=== PATIENT | female | born 2000 | race Hispanic/Latino ===

== ENCOUNTER 2020-12-21 13:55 | Emergency (ER) | payer OTHER, SELFPAY ==
--- OUTSIDE RECORDS SUMMARY | 2020-12-21 13:58 | XMS REPORT | Continuity of Care Document ---
:2000 Author Organization [facility] t Address [address] Lopez [address] [place] [id number] Care Team Providers Name Role Phone Unavailable Unavailable Unavailable Problems This patient has no known problems. Allergies, Adverse Reactions, Alerts This patient has no known allergies or adverse reactions. Medications This patient has no known medications. Procedures This patient has no known procedures. Results This patient has no known results.
--- NOTE | 2020-12-21 16:56 | ER ---
Nurse's Notes [facility] Name: Roderick Motta Age: 20 yrs Sex: Female : 2000 Arrival Date: 12/21/2020 Time: 13:58 Bed Waiting Private MD: Diagnosis: Presentation: 12/21 14:46 Chief complaint: Spouse and/or significant other states: LLQ pain that began 4 days aa5 ago. Pt reports pain is sharp and reports nausea. Denies vomiting. Coronavirus screen: At this time, the client does not indicate any symptoms associated with coronavirus-19. Ebola Screen: Patient negative for fever greater than or equal to 101.5 degrees Fahrenheit, and additional compatible Ebola Virus Disease symptoms. Initial Sepsis Screen: Does the patient meet any 2 criteria? No. Patient's initial sepsis screen is negative. Does the patient have a suspected source of infection? No. Patient's initial sepsis screen is negative. Risk Assessment: Do you want to hurt yourself or someone else? Patient reports no desire to harm self or others. Onset of symptoms was December 2020. 14:46 Method Of Arrival: Ambulatory aa5 14:46 Acuity: AMADOR 3 aa5 Historical: - Allergies: 14:48 No Known Allergies; aa5 - Home Meds: 14:48 Cymbalta oral oral [Active]; Trazodone Oral [Active]; aa5 - PMHx: 14:48 None; aa5 - PSHx: 14:48 None; aa5 - Immunization history:: Flu vaccine is up to date. - Social history:: Smoking status: Patient reports the use of cigarette tobacco products, 2-3 cigarettes a day . Vital Signs: 14:46 BP 123 / 92; Pulse 87; Resp 18 S; Temp 97.5(TE); Pulse Ox 100% on R/A; Weight 81.65 kg aa5 (R); Height 5 ft. 3 in. (160.02 cm) (R); 14:46 Body Mass Index 31.89 (81.65 kg, 160.02 cm) aa5 ED Course: 13:58 Patient arrived in ED. mr 14:25 Patient's name was called from ER lobby. No response. aa5 14:46 Arm band placed on. aa5 14:47 Triage completed. aa5 16:56 Wilder Ham MD is Attending Physician. aa5 Administered Medications: No medications were administered Outcome: 16:56 Patient left the ED. aa5 Signatures: Sara Stubbs Audri RN RN aa5 Corrections: (The following items were deleted from the chart) 14:49 14:46 BP 123 / 92; Pulse 87bpm; Resp 18bpm; Spontaneous; Pulse Ox 100% RA; Temp 97.5F aa5 Temporal; aa5
[2020-12-21 17:12] VITALS: BP 123/92; TEMP 97.5; O2SAT 100
[2020-12-21 19:44] LABS: Urine Blood TRACE (NEG); Urine Glucose NEGATIVE (NEG); Urine Protein NEGATIVE (NEG); Urine pH 6.5 (5.0-7.0)
== END 2020-12-21 16:56 | disposition left against medical advice (07) ==
LOC: ER 13:55
DX: R10.32 Left lower quadrant pain (principal); Z53.21 Procedure and treatment not carried out due to patient leaving prior to being seen by health care provider; F17.210 Nicotine dependence, cigarettes, uncomplicated
CPT/HCPCS: 81003; 81025; 99281

== ENCOUNTER 2022-03-05 21:56 | Emergency (ER) | payer SELFPAY ==
--- OUTSIDE RECORDS SUMMARY | 2022-03-05 21:59 | XMS REPORT | Continuity of Care Document ---
:2000 Author Organization [facility] t Address [address] [place] [address] Dr. Lopez [address] [place] [id number] Care Team Providers Name Role Phone Unavailable Unavailable Unavailable Problems This patient has no known problems. Allergies, Adverse Reactions, Alerts This patient has no known allergies or adverse reactions. Medications This patient has no known medications. Procedures This patient has no known procedures. Results This patient has no known results.
[2022-03-05 22:26] LABS: Urine Blood Trace-intact (Negative); Urine Glucose Negative (Negative); Urine Protein Negative (Negative); Urine Specific Gravity >=1.030 (1.005-1.030)
[2022-03-05] MEDS ORDERED: ONDANSETRON 4 MG/2 ML VIAL ONE (22:33)
[2022-03-05] MEDS ORDERED: MORPHINE 4 MG/ML SYR ONE (23:08)
[2022-03-05] MEDS ORDERED: PROMETHAZINE INJ 25 MG/ML AMP ONE (23:08)
[2022-03-06 00:07] LABS: Absolute Lymphocytes (CBC) 2.5 K/uL (0.7-4.9); Hematocrit 41.6 % (36.0-45.0); Lymphocytes % 15.9 % (15.3-44.8); MPV 10.6 fL (7.6-11.3); RBC Red Blood Cell Count 4.65 M/uL (3.86-4.86)
[2022-03-06 00:18] LABS: Albumin 3.7 g/dL (3.4-5.0); Bilirubin Total 0.2 mg/dL (0.2-1.0); Potassium 3.6 mmol/L (3.5-5.1); Protein, Total 7.6 g/dL (6.4-8.2)
[2022-03-06] MEDS ORDERED: NA CHLORIDE 0.9% 1,000 ML ONE (02:17)
[2022-03-06] MEDS ORDERED: FAMOTIDINE 20 MG/2 ML VIAL IV ONE (02:17)
[2022-03-06] MEDS ORDERED: ONDANSETRON 4 MG/2 ML VIAL ONE (02:17)
--- NOTE | 2022-03-06 03:39 | ER ---
Nurse's Notes [facility] Name: Roderick Motta Age: 21 yrs Sex: Female : 2000 Arrival Date: 03/05/2022 Time: 21:57 Bed Treatment Private MD: Diagnosis: Abdominal pain, Generalized;Vomiting Presentation: 03/05 22:05 Chief complaint: Patient states: "I have no clue. I had a miscarriage before and this tw5 is what it feels like. I am not experiencing any bleeding. I feel like I am cramping all the way up my stomach. I feel dizzy and nauseous.". Coronavirus screen: Vaccine status: Patient reports being unvaccinated. Ebola Screen: Patient negative for fever greater than or equal to 101.5 degrees Fahrenheit, and additional compatible Ebola Virus Disease symptoms Patient denies exposure to infectious person. Patient denies travel to an Ebola-affected area in the 21 days before illness onset. Initial Sepsis Screen: Does the patient meet any 2 criteria? No. Patient's initial sepsis screen is negative. Does the patient have a suspected source of infection? Yes: Acute abdominal pain. Risk Assessment: Do you want to hurt yourself or someone else? Patient reports no desire to harm self or others. Onset of symptoms was March 04, 2022. 22:05 Method Of Arrival: Ambulatory tw5 22:05 Acuity: AMADOR 3 tw5 Triage Assessment: 22:07 General: Appears uncomfortable, obese, Behavior is cooperative, appropriate for age. tw5 Pain: Complains of pain in abdomen Pain currently is 8 out of 10 on a pain scale. Quality of pain is described as crampy. GI: Reports cramping, nausea, vomiting. 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 - Social history:: Smoking status: Patient reports the use of cigarette tobacco products, denies chronic smoking, but will smoke occasionally. Screenin:40 Abuse screen: Denies threats or abuse. Denies injuries from another. Nutritional ld1 screening: No deficits noted. Tuberculosis screening: No symptoms or risk factors identified. Fall Risk None identified. Assessment: 22:40 General: Appears in no apparent distress. comfortable, Behavior is cooperative, ld1 appropriate for age, crying, fussy. 22:40 Pain: Complains of pain in abdomen Pain does not radiate. Pain currently is 8 out of 10 ld1 on a pain scale. Quality of pain is described as throbbing, Pain began gradually. Neuro: Level of Consciousness is awake, alert, obeys commands, Oriented to person, place, time, situation. Cardiovascular: Capillary refill < 3 seconds Patient's skin is warm and dry. Respiratory: Airway is patent Respiratory effort is even, unlabored. GI: Abdomen is round non-distended, Bowel sounds present X 4 quads. Abd is soft Abdomen is tender to palpation X 4 quads. : No signs and/or symptoms were reported regarding the genitourinary system. EENT: No signs and/or symptoms were reported regarding the EENT system. Derm: No signs and/or symptoms reported regarding the dermatologic system. Musculoskeletal: No signs and/or symptoms reported regarding the musculoskeletal system. 03/06 02:25 Reassessment: Patient states feeling better. tw5 Vital Signs: 03/05 22:05 BP 144 / 100; Pulse 88; Resp 18; Temp 99(O); Pulse Ox 98% on R/A; Weight 86.18 kg; tw5 Height 5 ft. 2 in. (157.48 cm); Pain 8/10; 22:40 BP 139 / 99; Pulse 84; Resp 18; Pulse Ox 99% on R/A; ld1 03/06 02:24 Pain 7/10; tw5 02:25 BP 151 / 92; Pulse 76; Resp 18; Pulse Ox 100% on R/A; Pain 7/10; tw5 03/05 22:05 Body Mass Index 34.75 (86.18 kg, 157.48 cm) tw5 ED Course: 03/05 21:57 Patient arrived in ED. kz 22:07 Triage completed. tw5 22:07 Arm band placed on right wrist. tw5 22:09 Tatum Gill, RN is Primary Nurse. ld1 22:19 Inserted saline lock: 20 gauge in right antecubital area, using aseptic technique. tp1 Blood collected. 22:20 Urine collected: clean catch specimen, clear. tp1 22:22 Troy Gagnon PA is PHCP. jr8 22:22 Adriel Sandra MD is Attending Physician. jr8 22:40 Patient has correct armband on for positive identification. Placed in gown. Bed in low ld1 position. Call light in reach. Side rails up X2. 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 Pulse ox on. NIBP on. Door closed. Noise minimized. Warm blanket given. 22:40 No provider procedures requiring assistance completed. ld03/06 01:13 CT Abd/Pelvis - IV Contrast Only In Process Unspecified. EDMS 02:25 Diet: Patient given juice. tw5 03:52 Patient did not have IV access during this emergency room visit. tw5 Administered Medications: 03/05 22:47 Drug: Zofran (Ondansetron) 4 mg Route: IVP; Site: left antecubital; 03/06 02:24 Follow up: Response: No adverse reaction 03/05 23:13 Drug: Promethazine 12.5 mg Route: IVP; Site: left antecubital; 03/06 02:24 Follow up: Response: No adverse reaction 03/05 23:13 Drug: morphine 4 mg Route: IVP; Infused Over: 4 mins; Site: left antecubital; ld03/06 02:24 Follow up: Pain 7/10 Adult; Response: No adverse reaction; RASS: Alert and Calm (0) tw 02:25 Drug: NS 0.9% 1000 ml Route: IV; Rate: 1 bolus; Site: left antecubital; tw5 03:54 Follow up: Response: No adverse reaction; IV Status: Completed infusion; IV Intake: tw5 1000ml 02:25 Drug: Pepcid (famotidine) 20 mg Route: IVP; Site: left antecubital; tw5 03:54 Follow up: Response: No adverse reaction 02:25 Drug: Zofran (Ondansetron) 4 mg Route: IVP; Site: left antecubital; tw 03:54 Follow up: Response: No adverse reaction tw Medication: 03/05 22:40 VIS not applicable for this client. ld1 Intake: 03/06 03:54 IV: 1000ml; Total: 1000ml. tw5 Outcome: 03:38 Discharge ordered by . kdr 03:52 Discharged to home ambulatory. tw5 03:52 Condition: good 03:52 Discharge instructions given to patient, Instructed on discharge instructions, follow up and referral plans. Demonstrated understanding of instructions, follow-up care, medications, Prescriptions given X 1. 03:53 Patient left the ED. Signatures: Dispatcher [employer] EDMS Adriel Sandra MD MD kdr Roszak, Josh, PA PA jr8 Tatum Gill RN RN Tianna Fiore 5 Tianna Dalton1 Ирина Merlos
--- NOTE | 2022-03-06 03:40 | EDPHYS ---
Physician Documentation [facility] Name: Roderick Motta Age: 21 yrs Sex: Female : 2000 Arrival Date: 03/05/2022 Time: 21:57 Bed Treatment Private MD: ED Physician Adriel Sandra HPI: 03/05 23:17 This 21 yrs old Female presents to ER via Ambulatory with complaints of jr8 Abdominal Cramping, Nausea. 23:17 The patient presents with abdominal pain that is diffuse. Onset: The symptoms/episode jr8 began/occurred acutely, today. The symptoms do not radiate. Associated signs and symptoms: Pertinent positives: nausea and vomiting. The symptoms are described as crampy. Modifying factors: The symptoms are alleviated by nothing, the symptoms are aggravated by nothing. Severity of pain: At its worst the pain was moderate in the emergency department the pain is unchanged. The patient has not experienced similar symptoms in the past. The patient has not recently seen a physician. 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 - Social history:: Smoking status: Patient reports the use of cigarette tobacco products, denies chronic smoking, but will smoke occasionally. ROS: 23:17 Eyes: Negative for injury, pain, redness, and discharge, ENT: Negative for injury, jr8 pain, and discharge, Neck: Negative for injury, pain, and swelling, Cardiovascular: Negative for chest pain, palpitations, and edema, Respiratory: Negative for shortness of breath, cough, wheezing, and pleuritic chest pain, Back: Negative for injury and pain, MS/Extremity: Negative for injury and deformity, Skin: Negative for injury, rash, and discoloration, Neuro: Negative for headache, weakness, numbness, tingling, and seizure. 23:17 Abdomen/GI: Positive for nausea and vomiting, abdominal cramps, Negative for diarrhea, hematemesis, rectal bleeding. Exam: 23:17 Constitutional: This is a well developed, well nourished patient who is awake, alert, jr8 and in no acute distress. Cardiovascular: Regular rate and rhythm with a normal S1 and S2. No gallops, murmurs, or rubs. Normal PMI, no JVD. No pulse deficits. Respiratory: Lungs have equal breath sounds bilaterally, clear to auscultation and percussion. No rales, rhonchi or wheezes noted. No increased work of breathing, no retractions or nasal flaring. Back: No spinal tenderness. No costovertebral tenderness. Full range of motion. Skin: Warm, dry with normal turgor. Normal color with no rashes, no lesions, and no evidence of cellulitis. MS/ Extremity: Pulses equal, no cyanosis. Neurovascular intact. Full, normal range of motion. Neuro: Awake and alert, GCS 15, oriented to person, place, time, and situation. Cranial nerves II-XII grossly intact. Motor strength 5/5 in all extremities. Sensory grossly intact. 23:17 Abdomen/GI: Inspection: obese Bowel sounds: normal, Palpation: soft, in all quadrants, mild abdominal tenderness, in the abdomen diffusely, mass, is not appreciated, rebound tenderness, is not appreciated, voluntary guarding, is not appreciated, involuntary guarding, is not appreciated, no appreciated organomegaly, Indicators: McBurney's point is not tender, Thornton's sign is negative, Rovsing's sign is negative, Liver: tenderness, is not appreciated. Vital Signs: 22:05 BP 144 / 100; Pulse 88; Resp 18; Temp 99(O); Pulse Ox 98% on R/A; Weight 86.18 kg; tw5 Height 5 ft. 2 in. (157.48 cm); Pain 8/10; 22:40 BP 139 / 99; Pulse 84; Resp 18; Pulse Ox 99% on R/A; ld1 03/06 02:24 Pain 7/10; tw5 02:25 BP 151 / 92; Pulse 76; Resp 18; Pulse Ox 100% on R/A; Pain 7/10; tw5 03/05 22:05 Body Mass Index 34.75 (86.18 kg, 157.48 cm) tw5 MDM: 03/05 22:29 Patient medically screened. jr8 03/06 03:23 Data reviewed: vital signs, nurses notes, lab test result(s), radiologic studies. kdr Counseling: I had a detailed discussion with the patient and/or guardian regarding: the historical points, exam findings, and any diagnostic results supporting the discharge/admit diagnosis, lab results, radiology results, the need for outpatient follow up. 03/05 22:08 Order name: CBC with Diff; Complete Time: 00:13 03/05 22:08 Order name: CMP; Complete Time: 00:26 03/05 22:08 Order name: Lipase; Complete Time: 00:26 03/05 22:26 Order name: Urine Dipstick-Ancillary; Complete Time: 22:58 EDMS 03/05 22:08 Order name: IV Saline Lock; Complete Time: 22:22 03/05 23:03 Order name: CT Abd/Pelvis - IV Contrast Only jr8 03/05 22:08 Order name: Labs collected and sent; Complete Time: 22:22 03/05 22:08 Order name: Urine Dipstick-Ancillary (obtain specimen); Complete Time: 22:22 03/05 22:08 Order name: Urine Test (obtain specimen); Complete Time: 22:22 03/06 02:10 Order name: PO challenge; Complete Time: 02:24 kdr Administered Medications: 03/05 22:47 Drug: Zofran (Ondansetron) 4 mg Route: IVP; Site: left antecubital; 03/06 02:24 Follow up: Response: No adverse reaction 03/05 23:13 Drug: Promethazine 12.5 mg Route: IVP; Site: left antecubital; 03/06 02:24 Follow up: Response: No adverse reaction 03/05 23:13 Drug: morphine 4 mg Route: IVP; Infused Over: 4 mins; Site: left antecubital; 03/06 02:24 Follow up: Pain 7/10 Adult; Response: No adverse reaction; RASS: Alert and Calm (0) 02:25 Drug: NS 0.9% 1000 ml Route: IV; Rate: 1 bolus; Site: left antecubital; 03:54 Follow up: Response: No adverse reaction; IV Status: Completed infusion; IV Intake: 5 1000ml 02:25 Drug: Pepcid (famotidine) 20 mg Route: IVP; Site: left antecubital; 03:54 Follow up: Response: No adverse reaction tw5 02:25 Drug: Zofran (Ondansetron) 4 mg Route: IVP; Site: left antecubital; tw5 03:54 Follow up: Response: No adverse reaction tw5 Disposition: 03:22 Co-signature as Attending Physician, Adriel Sandra MD I agree with the assessment and kdr plan of care. Disposition Summary: 03/06/22 03:38 Discharge Ordered Location: Home kdr Problem: new kdr Symptoms: have improved kdr Condition: Stable kdr Diagnosis - Abdominal pain, Generalized kdr - Vomiting kdr Followup: kdr - With: Private Physician - When: 2 - 3 days - Reason: If symptoms return, Further diagnostic work-up, Recheck today's complaints, Continuance of care, Re-evaluation by your physician Discharge Instructions: - Discharge Summary Sheet kdr - Nausea and Vomiting, Adult, [id number] kdr - Abdominal Pain, Adult, [id number] kdr Forms: - Medication Reconciliation Form kdr - Thank You Letter kdr - Antibiotic Education kdr - Prescription Opioid Use kdr Prescriptions: - Pepcid 20 mg Oral Tablet - take 1 tablet by ORAL route every 12 hours for 10 days; 20 tablet; Refills: 0, kdr Product Selection Permitted - Zofran 4 mg Oral Tablet - take 1 tablet by ORAL route every 12 hours As needed; 6 tablet; Refills: 0, kdr Product Selection Permitted Signatures: Dispatcher [employer] EDMS Adriel Sandra MD MD kdr Troy Gagnon PA PA jr8 Tatum Gill RN RN ld1 Tianna Murphy tw5
[2022-03-06 03:58] VITALS: TEMP 99
[2022-03-06 04:02] VITALS: BP 151/92; O2SAT 100
--- NOTE | 2022-03-06 10:47 | RAD REPORT ---
EXAM DESCRIPTION: Abdomen Pelvis W Contrast 03/06/2022 1:21 AM CDT CLINICAL HISTORY: 21 years, Female, Abdominal pain, acute, nonlocalized COMPARISON: None. TECHNIQUE: Contrast-enhanced images of the abdomen and pelvis were performed utilizing 5 mm slice th ickness at 5 mm interval reconstruction from the lung bases to the ischial tuberosities after the adm inistration IV contrast. In addition multiplanar reformats in the coronal and sagittal plane were obtained and reviewed. This exam was performed according to our departmental dose-optimization protocol, which includes auto mated exposure control, adjustment of the mA and/or kV according to patient size and/or use of iterat ethan reconstruction technique. FINDINGS: The lung bases minimal atelectatic changes right lung base. Mild elevation of the right he midiaphragm. The liver demonstrate decreased attenuation corresponding to mild fatty infiltration. Otherwise the l iver, gallbladder, pancreas, spleen and adrenal glands demonstrate to be unremarkable, no focal lesio ns are noted. The kidneys demonstrate normal uptake of contrast media. No evidence for nephrolithiasis and/or hydro nephrosis. Grossly the unopacified stomach, small bowel and large bowel demonstrate to be within normal limits. There is no evidence for bowel dilatation and/or free air. The appendix is normal. The urinary bladder demonstrate to be unremarkable. The uterus is unremarkable. There are normal bi lateral adnexal structures. The aorta demonstrate to be normal. There is no retroperitoneal lymph adenopathy. There is no ascites. The rest of the soft tissue and bony structures are within normal li mits. IMPRESSION: No acute intra-abdominal process. Mild fatty infiltration of the liver. Electronically signed by: Jose Juan Brito MD 03/06/2022 1:23 AM CDT Due to temporary technical issues with the PACS/Fluency reporting system, reports are being signed by the in house radiologist without review as a courtesy to ensure prompt reporting. The interpreting r adiologist is fully responsible for the content of the report.
== END 2022-03-06 03:53 | disposition home or self-care (01) ==
LOC: ER 21:56
DX: R10.84 Generalized abdominal pain (principal); R11.2 Nausea with vomiting, unspecified; F17.210 Nicotine dependence, cigarettes, uncomplicated
CPT/HCPCS: 36415; 74177; 80053; 81003; 83690; 85025; 96361; 96374; 96375; 99284; J2405; J2550; J3490; J7030; Q9967

== ENCOUNTER 2023-01-01 16:55 | Emergency (ER) | payer SELFPAY ==
--- OUTSIDE RECORDS SUMMARY | 2023-01-01 16:58 | XMS REPORT | Continuity of Care Document ---
:2000 Author Organization [facility] t Address [address] [place] [address] Care Team Providers Name Role Phone LARRY CARDOSO Primary Care Physician Unavailable JENNIFER VALDIVIA Attending Clinician Unavailable Jennifer Wood Attending Clinician Doctor Unassigned, [place] Attending Clinician Unavailable Payers Payer Name Policy Type Policy Number Effective Date Expiration Date S ource [place] [id number] 2018 2019 00:00:00 00:00:00 Problems Condition Condition Condition Status Onset Resolution Last Treating Co mments Source Name Details Category Date Date Treatment Clinician Date High risk High risk Disease Active Uni vers , , 3- [place] [facility] Obesity in Obesity in Disease Active U nivers 3-07 ity of 00:00: [place] 00 [facility] Primigravi Primigravi Disease Active U nivers da in da in 3-07 ity of first first 00:00: [place] trimester trimester 00 [facility] Hirsutism Hirsutism Disease Active Uni vers 8-22 ity of 00:00: [place] 00 Medical Branch History of History of Disease Active U nivers depression depression 8-29 it y of 00:00: [place] 00 Medical Branch History of History of Disease Active U nivers anxiety anxiety 8-29 ity of 00:00: [place] 00 [facility] Allergies, Adverse Reactions, Alerts Allergy Allergy Status Severity Reaction(s) Onset Inactive Treating Comm ents Source Name Type Date Date Clinician NO KNOWN Drug Active [facility] ALLERGIE Class ity of S [facility] Social History Social Habit Start Date Stop Date Quantity Comments Source Exposure to 2022-02-25 2022-03-07 Not sure [facility] SARS-CoV-2 (event) 00:00:00 01:58:00 [facility] Alcohol intake 2022-03-07 2022-03-07 0 /d [facility] 00:00:00 00:00:00 [facility] Tobacco use and 2013-05-30 2013-05-30 Never used [facility] exposure 00:00:00 00:00:00 [facility] Sex Ass[birth year] [facility] 00:00:00 00:00:00 [facility] Smoking Status Start Date Stop Date Source Never smoker [facility] Medications Ordered Filled Start Stop Current Ordering Indication Dosage Frequency Signature Comments Components Source Medication Medication Date Date Medication? Clinician (SIG) Name Name morpHINE (4 2021- No 4mg 4 mg, Slow Univers mg/mL) 03-07 IV Push, ity of injection 4 09:30: 21:29 [place] :[place] dose, On Medical Fri Branch 03/07/22 at 0430, STAT metoclopram 2021- No 10mg 10 mg, Uni vers jerman HCl 03-07 Slow IV ity of (REGLAN) 09:30: 21:29 Push, [place] injection 00 :00 ONCE, 1 Medical 10 mg dose, On Branch 03/07/22 at 0430, BO dicyclomine 2021- No 20mg 20 mg, Uni vers (BENTYL) 03-07 Oral, ity of tablet 20 08:15: 07:12 ONCE, 1 [place] mg [place] :[place] dose, On Medical Fri Branch 03/07/22 at 0315, Routine ondansetron 2021- No 4mg 4 mg, Slow Univers (ZOFRAN 03-07 IV Push, ity of (PF)) 08:15: 07:12 ONCE, 1 [place] injection 4 00 :00 dose, On Medi ishmael mg Fri Branch 03/07/22 at 0315, BO ketorolac 2021- No 30mg 30 mg, Unive rs (TORADOL) 03-07 Slow IV ity of injection 08:15: 07:12 Push, [place] 30 mg 00 :00 ONCE, 1 Medical dose, On Branch 03/07/22 at 0315, BO
Fa culty member approving Restricted medication : JENNIFER VALDIVIA proMETHazin Yes [id number] 25mg Take 1 Univers e 25 mg - tablet by ity of tablet 00:00: mouth [place] 00 every 6 Medical (six) Branch hours as needed for Nausea and Vomiting (N/V). Yes [id number] 1{packe Take 1 Univers vit 3-07 t} Packet by ity of 33-iron-fol 00:00: mouth [place] ic-dha 00 daily. Medical ([facility] Branch + DHA) 29 mg iron-1 mg -250 mg combo pack Yes [id number] 1{packe Take 1 Univers vit 3-07 t} Packet by ity of 33-iron-fol 00:00: mouth [place] ic-dha 00 daily. Medical ([facility] [place] + DHA) 29 mg iron-1 mg -250 mg combo pack Immunizations Ordered Immunization Filled Immunization Date Status Commen ts Source Name Name HEPATITIS A 2012-02-13 Completed University of 00:00:00 [facility] HEPATITIS A 2012-02-13 Completed University of 00:00:00 [facility] HEPATITIS A 2010-03-06 Completed University of 00:00:00 [facility] Meningococcal 2010-03-06 Completed University of Vaccine 00:00:00 [facility] TDAP 2010-03-06 Completed University of 00:00:00 [facility] Varicella 2010-03-06 Completed University of (varivax)(chicken 00:00:00 [place] M edical pox) [place] HEPATITIS A 2010-03-06 Completed University of 00:00:00 [facility] Meningococcal 2010-03-06 Completed University of Vaccine 00:00:00 [facility] TDAP 2010-03-06 Completed University of 00:00:00 [facility] Varicella 2010-03-06 Completed University of (varivax)(chicken 00:00:00 [place] M edical pox) Branch DTAP 2002-06-06 Completed University of 00:00:00 [facility] MMR 2002-06-06 Completed University of 00:00:00 [facility] Polio (IPV/OPV) 2002-06-06 Completed Universit y of 00:00:00 [facility] DTAP 2002-06-06 Completed University of 00:00:00 [facility] MMR 2002-06-06 Completed University of 00:00:00 [facility] Polio (IPV/OPV) 2002-06-06 Completed Universit y of 00:00:00 [facility] Varicella 1999-08-15 Completed University of (varivax)(chicken 00:00:00 [facility] edical pox) Branch Varicella 1999-08-15 Completed University of (varivax)(chicken 00:00:00 [facility] edical pox) Branch DTAP 1999-05-23 Completed University of 00:00:00 [facility] HIB 4 Dose Schedule 1999-05-23 Completed Unive rsity of 00:00:00 [facility] MMR 1999-05-23 Completed University of 00:00:00 [facility] Polio (IPV/OPV) 1999-05-23 Completed Universit y of 00:00:00 [facility] DTAP 1999-05-23 Completed University of 00:00:00 [facility] HIB 4 Dose Schedule 1999-05-23 Completed Unive rsity of 00:00:00 [facility] MMR 1999-05-23 Completed University of 00:00:00 [facility] Polio (IPV/OPV) 1999-05-23 Completed Universit y of 00:00:00 [facility] DTAP 1998 Completed University of 00:00:00 [facility] HIB 4 Dose Schedule 1998 Completed Unive rsity of 00:00:00 [facility] Hep B, Adol or Pedi 1998 Completed Unive rsity of Dosage 00:00:00 [facility] DTAP 1998 Completed University of 00:00:00 [facility] HIB 4 Dose Schedule 1998 Completed Unive rsity of 00:00:00 [facility] Hep B, Adol or Pedi 1998 Completed Unive rsity of Dosage 00:00:00 [facility] Branch DTAP 1998 Completed University of 00:00:00 [facility] HIB 4 Dose Schedule 1998 Completed Unive rsity of 00:00:00 [facility] Branch Polio (IPV/OPV) 1998 Completed Universit y of 00:00:00 [facility] Branch DTAP 1998 Completed University of 00:00:00 [facility] HIB 4 Dose Schedule 1998 Completed Unive rsity of 00:00:00 [place] [facility] Polio (IPV/OPV) 1998 Completed Universit y of 00:00:00 [facility] Branch DTAP 1998 Completed University of 00:00:00 [facility] HIB 4 Dose Schedule 1998 Completed Unive rsity of 00:00:00 [facility] Polio (IPV/OPV) 1998 Completed Universit y of 00:00:00 [facility] Branch DTAP 1998 Completed University of 00:00:00 [facility] HIB 4 Dose Schedule 1998 Completed Unive rsity of 00:00:00 [facility] Polio (IPV/OPV) 1998 Completed Universit y of 00:00:00 [facility] Hep B, Adol or Pedi 1998 Completed Unive rsity of Dosage 00:00:00 [facility] Hep B, Adol or Pedi 1998 Completed Unive rsity of Dosage 00:00:00 [facility] Hep B, Adol or Pedi 1998 Completed Unive rsity of Dosage 00:00:00 [facility] Hep B, Adol or Pedi 1998 Completed Unive rsity of Dosage 00:00:00 [facility] Vital Signs Vital Name Observation Time Observation Value Comments Source Heart rate 2022-03-07 08:00:00 88 /min Universi ty of [facility] Respiratory rate 2022-03-07 08:00:00 18 /min Univ ersity of [facility] Oxygen saturation in 2022-03-07 08:00:00 97 /min [facility] Arterial blood by [facility] Pulse oximetry Branch Systolic blood 2022-03-07 07:00:00 150 mm[Hg] [place] sity of pressure [facility] Diastolic blood 2022-03-07 07:00:00 99 mm[Hg] Unive rsity of pressure [facility] Body temperature 2022-03-07 06:58:00 37.5 [facility] height 2022-03-07 06:58:00 157.5 cm [facility] Body weight 2022-03-07 06:58:00 90.719 kg [facility] BMI 2022-03-07 06:58:00 36.58 kg/m2 [facility] Procedures Procedure Date / Time Performed Performing Clinician Claudia e POCT TEST 2022-03-07 07:07:00 Jennifer Valdivia [facility] COMP. METABOLIC PANEL 2022-03-07 07:06:00 Jennifer Valdivia [facility] ([id number]) [facility] CBC WITH DIFF 2022-03-07 07:06:00 Jennifer Valdivia [facility] URINALYSIS 2022-03-07 07:06:00 Jennifer Valdivia [facility] LIPASE 2022-03-07 07:06:00 Jennifer Valdivia [facility] NOTICE OF PRIVACY 2022-03-07 06:51:53 Doctor Unassigned, No [facility] PRACTICES Name [facility] CONSENT/REFUSAL FOR 2022-03-07 06:51:22 Doctor Unassigned, No [facility] DIAGNOSIS AND Name [facility] TREATMENT Encounters Start End Encounter Admission Attending Care Care Encounter Source Date/Time Date/Time Type Type Clinicians Facility Department ID 2022-03-07 2022-03-07 Emergency X GYPSY VALDIVIA ERT [id number] Univers 01:53:00 03:37:00 JENNIFER pryor [facility] [place] 2022-03-07 2022-03-07 Emergency GYPSY Valdivia [id number] Univers 01:53:00 03:37:00 Jennifer WINKLER [id number] i ty [facility] [id number] [facility] [id number] [facility] 084 Branch 2022-03-07 2022-03-07 Orders Doctor PECK [id number] Univers 00:00:00 00:00:00 Only Unassigned, CAR [id number] ity of [place] [facility] [id number] Law as [id number] [place] [address] Branch Results Test Description Test Time Test Comments Results Result Comments Source COMP. METABOLIC PANEL ([id number]) 2022-03-07 07:41:40 Test Item Value Reference Range Interpretation Comme nts NA (test code = 3868807251) 138 mmol/L 135-145 K (test code = 6796069444) 3.7 mmol/L 3.5-5.0 CL (test code = 9014247144) 103 mmol/L 98-108 CO2 TOTAL (test code = 0050117251) 26 mmol/L 23-31 AGAP (test code = 6464182850) 2-16 BUN (test code = 4638560033) 9 mg/dL 7-23 GLUCOSE (test code = 6574299583) 150 mg/dL 70-110 H CREATININE (test code = 0.64 mg/dL 0.50-1.04 6188074932) TOTAL BILI (test code = 0.3 mg/dL 0.1-1.9 6301896337) CALCIUM (test code = 2112979336) 9.0 mg/dL 8.6-10.6 T PROTEIN (test code = 3681228706) 7.7 g/dL 6.3-8.2 ALBUMIN (test code = 7989984125) 4.8 g/dL 3.5-5.0 ALK PHOS (test code = 4354816612) 88 U/L 34-122 ALTv (test code = 1742-6) 19 U/L 5-35 AST(SGOT) (test code = 1383907710) 19 U/L 13-40 eGFR (test code = 0363938556) mL/min/1.73m2 SUSY (test code = SUSY) Association of Glomerular Filtration Rate (GFR) and Staging of Kidney Disease* + +-------- + ------+| GFR (mL/min/1.73 m2) ?| With Kidney Damage ?| ?Without Kidney Damage+ +-- + +| ?>90 ?| ?Stage one ?| ? Normal ?+ +------- + -------+| ?60-89 ?| ?Stage two ?| ? Decreased GFR ? + +-------- + ------+| ?30-59 ?| ?Stage three ?| ? Stage three ? + +-------- + ------+| ?15-29 ?| ?Stage four ? | ? Stage four ?+ +------- + -------+| ?<15 (or dialysis) ? ?| ?Stage five ? | ? Stage five ?+ +------- + -------+ *Each stage assumes the associated GFR level has been in effect for at least three months. ?Stages 1 to 5, with or without kidney disease, indicate chronic kidney disease. Notes: Determination of stages one and two (with eGFR >59mL/min/1.73 m2) requires estimation of kidney damage for at least three months as defined by structural or functional abnormalities of the kidney, manifested by either:Pathological abnormalities or Markers of kidney damage (including abnormalities in the composition of the blood or urine or abnormalities in imaging tests). Lab Interpretation (test code = Abnormal 00545-4) [facility] Test Item Value Reference Range Interpretation Comments LIPASE (test code = 8377345930) 46 U/L 0-220 Lab Interpretation (test code = Normal 33403-4) [facility] WITH [id number] 07:13:13 Test Item Value Reference Range Interpretation Comments WBC (test code = See_Comment H [Automated 5408-2) message] The system which generated this result transmit shereen reference range : 4.30 - 11.10 10*3/?L. The reference range was not used to interpret this result as normal/abnormal . RBC (test code = See_Comment [Automated 199-8) message] The system which generated this result transmit shereen reference range : 3.93 - 5.25 10*6/?L. The reference range was not used to interpret this result as normal/abnormal . HGB (test code = 14.6 g/dL 11.6-15.0 718-7) HCT (test code = 43.0 % 35.7-45.2 4544-3) MCV (test code = 88.8 fL 80.6-95.5 787-2) MCH (test code = 30.2 pg 25.9-32.8 785-6) MCHC (test code = 34.0 g/dL 31.6-35.1 786-4) RDW-SD (test code = 42.7 fL 39.0-49.9 88728-9) RDW-CV (test code = 13.1 % 12.0-15.5 788-0) PLT (test code = See_Comment [Automated 777-3) message] The system which generated this result transmit shereen reference range : 166 - 358 10*3/ ?L. The reference range was not u sed to interpret th is result as normal/abnormal . MPV (test code = 12.1 fL 9.5-12.9 19185-7) NRBC/100 WBC (test See_Comment [Automat ed code = 7163862543) message] The system which generated this result transmit shereen reference range : 0.0 - 10.0 /100 WBCs. The reference range was not used to interpret this result as normal/abnormal . NRBC x10^3 (test code <0.01 See_Comment [Auto mated = 8708106988) message] The system which generated this result transmit shereen reference range : 10*3/?L. The reference range was not used to interpret this result as normal/abnormal . GRAN MAT (NEUT) % 85.6 % (test code = 770-8) IMM GRAN % (test code 0.40 % = 1149978589) LYMPH % (test code = 10.4 % 736-9) MONO % (test code = 3.2 % 5905-5) EOS % (test code = 0.2 % 713-8) BASO % (test code = 0.2 % 706-2) GRAN MAT x10^3(ANC) 14.64 10*3/uL 1.88-7.09 H (test code = 1120209404) IMM GRAN x10^3 (test 0.06 10*3/uL 0.00-0.06 code = 4923223610) LYMPH x10^3 (test code 1.77 10*3/uL 1.32-3.29 = 731-0) MONO x10^3 (test code 0.55 10*3/uL 0.33-0.92 = 742-7) EOS x10^3 (test code = 0.04 10*3/uL 0.03-0.39 711-2) BASO x10^3 (test code 0.03 10*3/uL 0.01-0.07 = 704-7) Lab Interpretation Abnormal (test code = 11793-2) [id number] 07:07:00 Test Item Value Reference Range Interpretation Comments POCT PREG (test code = 1605) negative Lab Interpretation (test code = Normal 22746-2) [facility]"
[2023-01-01] MEDS ORDERED: DICYCLOMINE HCL 10 MG CAP ONE (17:55)
[2023-01-01] MEDS ORDERED: ONDANSETRON 4 MG (ODT) TAB ONE (17:56)
[2023-01-01 18:17] LABS: Specific Gravity > 1.030 (1.005-1.030); Urine Bacteria None Seen /HPF (<20); Urine Bilirubin NEGATIVE (Negative); Urine Blood Trace (Negative); Urine Clarity Clear (Clear); Urine Color Yellow (Yellow); Urine Glucose NEGATIVE (Negative); Urine Mucus 2+ /HPF (None Seen); Urine Protein 1+ (Negative); Urine Urobilinogen 2+ (Normal); Urine pH 6.5 (5.0-7.0)
--- NOTE | 2023-01-01 18:31 | EDPHYS ---
Physician Documentation [facility] Name: Roderick Motta Age: 22 yrs Sex: Female : 2000 Arrival Date: 01/01/2023 Time: 16:56 Bed IW1 Private MD: ED Physician Leoncio Joe HPI: 01/01 17:30 This 22 yrs old Female presents to ER via Ambulatory with complaints of cp Abdominal Cramping. 17:30 The patient presents with abdominal pain in the lower abdomen. cp 17:30 Onset: The symptoms/episode began/occurred yesterday. Associated signs and symptoms: cp Pertinent positives: nausea, 4 episodes of diarrhea, Pertinent negatives: anorexia, blood in stools, chest pain, constipation, fever, vaginal discharge. The symptoms are described as crampy. 17:30 Severity of pain: in the emergency department the pain is unchanged. cp 17:33 Patient declines having any blood work at this time. Will provide urine sample to check cp for infection and/or . 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 - Social history:: Smoking status: Patient reports the use of cigarette tobacco products, Reported history of juuling and/or vaping. ROS: 17:35 Constitutional: Negative for body aches, chills, fever, poor PO intake. cp 17:35 Eyes: Negative for injury, pain, redness, and discharge. cp 17:35 ENT: Negative for drainage from ear(s), ear pain, sore throat, difficulty swallowing, difficulty handling secretions. 17:35 Cardiovascular: Negative for chest pain, edema, palpitations. 17:35 Respiratory: Negative for cough, shortness of breath, wheezing. 17:35 Abdomen/GI: Positive for nausea, diarrhea, abdominal cramps, Negative for vomiting, constipation, anorexia, black/tarry stool, rectal bleeding. 17:35 : Negative for hematuria, flank pain, burning with urination, vaginal bleeding, vaginal discharge. 17:35 Neuro: Negative for altered mental status, dizziness, headache, weakness. 17:35 All other systems are negative. Exam: 17:40 Constitutional: The patient appears in no acute distress, alert, awake, non-toxic, well cp developed, well nourished. 17:40 Head/Face: Normocephalic, atraumatic. cp 17:40 Eyes: Periorbital structures: appear normal, Conjunctiva: normal, no exudate, no injection, Sclera: no appreciated abnormality, Lids and lashes: appear normal, bilaterally. 17:40 ENT: External ear(s): are unremarkable, Nose: is normal, Mouth: Lips: moist, Oral mucosa: moist, Posterior pharynx: is normal, airway is patent, no erythema, no exudate. 17:40 Chest/axilla: Inspection: normal. 17:40 Cardiovascular: Rate: normal, Rhythm: regular. 17:40 Respiratory: the patient does not display signs of respiratory distress, Respirations: normal, no use of accessory muscles, no retractions, labored breathing, is not present. 17:40 Abdomen/GI: Inspection: abdomen appears normal, Bowel sounds: active, all quadrants, Palpation: soft, in all quadrants, mild abdominal tenderness, in the right lower quadrant and left lower quadrant, rebound tenderness, is not appreciated, involuntary guarding, is not appreciated. 17:40 Back: pain, is absent, ROM is normal. Vital Signs: 17:11 BP 118 / 80; Pulse 87; Resp 16 S; Temp 98(TE); Pulse Ox 100% on R/A; Weight 90.72 kg aa5 (R); Height 5 ft. 3 in. (R); 17:11 Body Mass Index 35.43 (90.72 kg, 160.02 cm) aa5 MDM: 17:10 Patient medically screened. cp 17:40 Differential diagnosis: appendicitis, gastritis, non-specific abd pain, Peritonitis, cp Pelvic Inflammatory Disease, Ureterolithiasis, urinary tract infection. 18:30 Data reviewed: vital signs, nurses notes, lab test result(s), urinalysis. cp 18:30 Test considered but Not performed: Labs: cbc, bmp. CT: abdomen/pelvis. Counseling: I cp had a detailed discussion with the patient and/or guardian regarding: the historical points, exam findings, and any diagnostic results supporting the discharge/admit diagnosis, lab results, to return to the emergency department if symptoms worsen or persist or if there are any questions or concerns that arise at home. ED course: VSS. Patient declines any blood work at this time. Will discharge to home for continued monitoring and patient can return to ED at any time for reevaluation. 01/01 17:28 Order name: Urine W/Microscopic (UAM); Complete Time: 18:22 cp 01/01 18:23 Interpretation: Normal except: Urine SG > 1.030; UKET 2+; UBLD Trace; UPROT 1+; UUROB cp 2+; URBC 11-20. 01/01 17:28 Order name: PREGU; Complete Time: 18:02 cp 01/01 18:02 Interpretation: Reviewed. cp Administered Medications: 17:53 Drug: Ondansetron PO 4 mg Route: PO; aa5 18:35 Follow up: Response: No adverse reaction aa5 17:53 Drug: Dicyclomine PO 20 mg Route: PO; aa5 18:35 Follow up: Response: No adverse reaction aa5 Disposition Summary: 01/01/23 18:30 Discharge Ordered Location: Home cp Problem: new cp Symptoms: have improved cp Condition: Stable cp Diagnosis - Nausea cp - Diarrhea, unspecified cp Followup: cp - With: Private Physician - When: 1 - 2 days - Reason: Worsening of condition Discharge Instructions: - Discharge Summary Sheet ss - Diarrhea, Adult cp - Nausea, Adult cp - Form - Excuse from Work, School, or Physical Activity cp Forms: - Work release form ss - Medication Reconciliation Form cp - Thank You Letter cp - Antibiotic Education cp - Prescription Opioid Use cp Prescriptions: - Zofran 4 mg Oral Tablet - take 1 tablet by ORAL route every 12 hours As needed; 6 tablet; Refills: 0, cp Product Selection Permitted Signatures: Dispatcher [employer] Marry Lehman, RN RN aa5 Urbano Barnett PA PA cp
--- NOTE | 2023-01-01 18:31 | ER ---
Nurse's Notes [facility] Name: Roderick Motta Age: 22 yrs Sex: Female : 2000 Arrival Date: 01/01/2023 Time: 16:56 Bed IW1 Private MD: Diagnosis: Nausea;Diarrhea, unspecified Presentation: 01/01 17:11 Chief complaint: Patient states: lower abd cramping since yesterday. Pt reports nausea aa5 and diarrhea. Denies vomiting. 17:11 Method Of Arrival: Ambulatory aa5 17:11 Coronavirus screen: diarrhea, nausea. Ebola Screen: Patient denies travel to an [facility] Ebola-affected area in the 21 days before illness onset. Initial Sepsis Screen: Does the patient meet any 2 criteria? No. Patient's initial sepsis screen is negative. Does the patient have a suspected source of infection? No. Patient's initial sepsis screen is negative. Risk Assessment: Do you want to hurt yourself or someone else? Patient reports no desire to harm self or others. Onset of symptoms was December 2022. 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 - Social history:: Smoking status: Patient reports the use of cigarette tobacco products, Reported history of juuling and/or vaping. Assessment: 17:30 Reassessment: Urine sent to lab . aa5 18:35 Reassessment: Patient is alert, oriented x 3, equal unlabored respirations, skin aa5 warm/dry/pink. Vital Signs: 17:11 BP 118 / 80; Pulse 87; Resp 16 S; Temp 98(TE); Pulse Ox 100% on R/A; Weight 90.72 kg aa5 (R); Height 5 ft. 3 in. (R); 17:11 Body Mass Index 35.43 (90.72 kg, 160.02 cm) aa5 ED Course: 16:56 Patient arrived in ED. am2 17:00 Urbano Barnett PA is PHCP. cp 17:00 Leoncio Joe MD is Attending Physician. cp 17:11 Arm band placed on. aa5 17:13 Triage completed. aa5 18:35 No provider procedures requiring assistance completed. Patient did not have IV access aa5 during this emergency room visit. Administered Medications: 17:53 Drug: Ondansetron PO 4 mg Route: PO; aa5 18:35 Follow up: Response: No adverse reaction aa5 17:53 Drug: Dicyclomine PO 20 mg Route: PO; aa5 18:35 Follow up: Response: No adverse reaction aa5 Medication: 18:35 VIS not applicable for this client. aa5 Outcome: 18:30 Discharge ordered by MD. cp 18:35 Discharged to home ambulatory. aa5 18:35 Condition: stable 18:35 Discharge instructions given to patient, Instructed on discharge instructions, follow up and referral plans. medication usage, Demonstrated understanding of instructions, follow-up care, medications, Prescriptions given X 1. 18:40 Patient left the ED. aa5 Signatures: Marry Hammer RN RN aa5 Urbano Barnett PA PA Татьяна Giles am2 Corrections: (The following items were deleted from the chart) 17:15 17:11 BP 118 / 80; Pulse 87bpm; Resp 16bpm; Spontaneous; Pulse Ox 100% RA; Temp 98F aa5 Temporal; aa5 18:43 18:42 Patient left the ED. aa5 aa5
[2023-01-01 19:33] VITALS: BP 118/80; TEMP 98; O2SAT 100
== END 2023-01-01 18:42 | disposition home or self-care (01) ==
LOC: ER 16:55
DX: R11.0 Nausea (principal); R19.7 Diarrhea, unspecified
CPT/HCPCS: 81001; 81025; 99283; Q0162

== ENCOUNTER 2025-05-26 12:59 | Emergency (ER) | payer OTHER ==
--- OUTSIDE RECORDS SUMMARY | 2025-05-26 13:04 | XMS REPORT | Continuity of Care Document ---
Author Name Unknown Address [address] [facility] [address] [place] [address] Organization [facility] [place] Address [address] [facility] [address] [place] [address] Care Team Providers Care Cancer Spec Name Role Phone Camryn Jaimes Primary Care Physician Doctor Unassigned, [place] Attending Clinician U Sloane Sylvester MD Attending Clinician [phone] Kiersten Babb DNP Attending Clinician [place] Attending Clinician Unavailable [place] B[place] Attending Clinician Unavailable 2, [facility] Attending Clinician Unavailable COSME VALDIVIA Attending Clinician Unavailable Cosme Wood Attending Clinician [phone] Doctor Unassigned, [place] Attending Clinician U drea Payers Payer Name Policy Type Policy Number Effective Date Expirati on Date Source [employer] [place] [id number] 2018 00:00:00 2019 00:00:00 Problems Condition Name Condition Details Condition Category Status Onset Date Resolution Date Last Treatment Date Treating Clinician Comments Source Missed Missed Disease Active 9-10 00:00: 00 [facility] Obesity in Obesity in Disease Active 3-07 00:00: 00 [facility] Hirsutism Hirsutism Disease Active 06-02 00:00: 00 [facility] History of depression History of depression Disease Active 06-09 00:00: 00 [facility] History of anxiety History of anxiety Disease Active 06-09 00:00: 00 [facility] of unknown anatomic location of unknown anatomic location Disease Resolve d 05-27 00:00: 00 2024-06-21 00:00:00 2024-06-21 14:35:38 [facility] High risk , antepartum High risk , antepartum Disease Resolve d 12-16 00:00: 00 2024-05-27 00:00:00 2024-05-27 09:32:33 [facility] Primigravi da in first trimester Primigravi da in first trimester Disease Resolve d 12-16 00:00: 00 2024-05-27 00:00:00 2024-05-27 09:32:32 [facility] Abnormal laboratory test result Abnormal laboratory test result Disease Resolve d 06-02 00:00: 00 2018-12-16 00:00:00 2018-12-16 11:06:08 [facility] Contracept ethan management Contracept ethan management Disease Resolve d 01-22 00:00: 00 2018-12-16 00:00:00 2018-12-16 11:06:04 [facility] Screening for STD (sexually transmitte d disease) Screening for STD (sexually transmitte d disease) Disease Resolve d 06-08 00:00: 00 2018-12-16 00:00:00 2018-12-16 11:05:58 [facility] Risky sexual behavior Risky sexual behavior Disease Resolve d 06-08 00:00: 00 2018-12-16 00:00:00 2018-12-16 11:06:01 [facility] BV (bacterial vaginosis) BV (bacterial vaginosis) Disease Resolve d 01-22 00:00: 00 2016-06-02 00:00:00 2016-06-02 16:39:28 [facility] Herpes, vulvar Herpes, vulvar Disease Resolve d 2-01 00:00: 00 2016-01-23 00:00:00 2016-01-23 14:48:05 [facility] Encounter for surveillan ce of nuvaring Encounter for surveillan ce of nuvaring Disease Resolve d 06-09 00:00: 00 2016-01-23 00:00:00 2016-01-23 14:48:38 [facility] Surveillan ce of other previously prescribed contracept ethan method Surveillan ce of other previously prescribed contracept ethan method Disease Resolve d 06-09 00:00: 00 2015-06-09 00:00:00 2015-06-09 20:55:18 [facility] Depression Depression Disease Resolve d 05-30 00:00: 00 2015-06-09 00:00:00 2015-06-09 20:52:32 [facility] Depo-Prove ra contracept ethan status Depo-Prove ra contracept ethan status Disease Resolve d 05-15 00:00: 00 2015-06-08 00:00:00 2015-06-08 16:09:54 [facility] Allergies, Adverse Reactions, Alerts Allergy Name Allergy Type Status Severity Reaction(s) Onset Date Inactive Date Treating Clinician Comments Source NO KNOWN ALLERGIE S Drug Class Active [facility] Social History Social Habit Start Date Stop Date Quantity Comments Source [facility] History of Social function 2024-06-21 00:00:00 2024-06-21 00:00:00 [facility] Alcoholic beverage intake 2024-05-27 00:00:00 2024-05-27 00:00:00 0 /d [facility] Tobacco use and exposure 2024-05-27 00:00:00 2024-05-27 00:00:00 Smokeless tobacco non-user [facility] Exposure to SARS-CoV-2 (event) 2022-02-25 00:00:00 2022-03-07 01:58:00 Not sure [facility] Alcohol intake 2022-03-07 00:00:00 2022-03-07 00:00:00 0 /d [facility] Sex assigned at 2000 00:00:00 2000 00:00:00 [facility] Smoking Status Start Date Stop Date Source Never smoked tobacco [facility] Medications Ordered Medication Name Filled Medication Name Start Date Stop Date Current Medication? Ordering Clinician Indication Dosage Frequency Signature (SIG) Comments Components Source Bromfed DM 2 mg-30 mg-10 mg/5 mL oral syrup 2023-10 00:00: 00 Yes 10mg/5 mL Eric Keene PNV 67-iron ps-folate no.1-dha (VITAFOL ULTRA) 29 mg iron- 1 mg-200 mg Cap 06-20 00:00: 00 06-20 00:00 :00 No [id number] 1{tbl} Take 1 tablet by mouth in the morning. If insurance does not cover can substituen t with any other mediation that contains components . [facility] progesteron e 200 mg capsule 05-31 00:00: [id number] 1 tab vaginally QHS [facility] azithromyci n 250 mg tablet 00:00: 00 Yes 1mg Eric Keene TAKE 10 ML EVERY 4-6 HOURS NEEDED 2022-10 00:00: 00 01-11 00:00 :00 No [id number] Eric Keene TAKE 1 TAB 4 TIMES A DAY NEEDED 04-08 00:00: 00 01-11 00:00 :00 No 50 Eric Keene TAKE 1 TO 2 TABLETS 3 TIMES DAILY NEEDED. 04-08 00:00: 00 01-11 00:00 :00 No 5 Eric Keene TAKE 1 TAB DAILY THE FIRST 5 DAYS, THEN HALF TAB DAILY THE LAST 5 DAYS 04-08 00:00: 00 01-11 00:00 :00 No 20 Eric Keene morpHINE (4 mg/mL) injection 4 mg 03-07 09:30: 00 03-07 21:29 :00 No 4mg 4 mg, Slow IV Push, ONCE, 1 dose, On Thu03/07/22 at 0430, STAT [facility] metoclopram jerman HCl (REGLAN) injection 10 mg 03-07 09:30: 00 03-07 21:29 :00 No 10mg 10 mg, Slow IV Push, ONCE, 1 dose, On Thu03/07/22 at 0430, BO [facility] dicyclomine (BENTYL) tablet 20 mg 03-07 08:15: 00 03-07 07:12 :00 No 20mg 20 mg, Oral, ONCE, 1 dose, On Thu03/07/22 at 0315, Routine [facility] ondansetron (ZOFRAN (PF)) injection 4 mg 03-07 08:15: 00 03-07 07:12 :00 No 4mg 4 mg, Slow IV Push, ONCE, 1 dose, On Thu03/07/22 at 0315, BO [facility] ketorolac (TORADOL) injection 30 mg 03-07 08:15: 03-07 07:12 :00 No 30mg 30 mg, Slow IV Push, ONCE, 1 dose, On Thu03/07/22 at 0315, BO
[facility] : COSME VALDIVIA [facility] proMETHazin e 25 mg tablet 03-07 00:00: 00 Yes [id number] 25mg Take 1 tablet by mouth every 6 (six) hours as needed for Nausea and Vomiting (N/V). [facility] Zithromax 250 mg tablet - 00:00: 00 Yes 1mg Eric F Jassi Celexa 20 mg tablet 2020-10 00:00: 00 Yes 1mg Eric F Jassi trazodone 50 mg tablet 2020-10 00:00: 00 Yes 1mg Eric F Jassi Celexa 20 mg tablet - 00:00: 00 Yes 1mg Eric F Jassi Celexa 20 mg tablet 8 00:00: 00 Yes 5mg Eric F Jassi trazodone 50 mg tablet 2020-0 8-05 00:00: 00 Yes 1mg Eric Keene Celexa 20 mg tablet 0 4-09 00:00: 00 Yes 1mg Eric Keene trazodone 100 mg tablet 0 4-09 00:00: 00 Yes 1mg Eric Keene Celexa 20 mg tablet 2020-0 3-19 00:00: 00 Yes 1mg Eric Keene trazodone 100 mg tablet 0 3-19 00:00: 00 Yes 1mg Eric Keene Celexa 20 mg tablet 0 2-27 00:00: 00 Yes 1mg Eric Keene trazodone 50 mg tablet 0 2-27 00:00: 00 Yes 1mg Eric Keene Celexa 20 mg tablet 0 1-27 00:00: 00 Yes 1mg Eric Keene trazodone 50 mg tablet 0 1-27 00:00: 00 Yes 1mg Eric Keene Celexa 20 mg tablet 0 1-06 00:00: 00 Yes 1mg Eric Keene trazodone 50 mg tablet 0 1-06 00:00: 00 Yes 1mg Eric Keene Celexa 20 mg tablet 1 2-17 00:00: 00 Yes 1mg Eric Keene trazodone 50 mg tablet 1 2-17 00:00: 00 Yes 1mg Eric Keene vit 33-iron-fol ic-dha (SELECT-OB + DHA) 29 mg iron-1 mg -250 mg combo pack 12-16 00:00: 00 Yes [id number] 1{packe t} Take 1 Packet by mouth daily. [facility] vit 33-iron-fol ic-dha (SELECT-OB + DHA) 29 mg iron-1 mg -250 mg combo pack 12-16 00:00: 00 06-20 00:00 :00 No [id number] 1{packe t} Take 1 Packet by mouth daily. [facility] Immunizations Ordered Immunization Name Filled Immunization Name Date Status Comments Source DTAP 2024-06-27 00:00:00 Completed [facility] HIB 4 Dose Schedule 2024-06-27 00:00:00 Completed [facility] HEPATITIS A 2024-06-27 00:00:00 Completed [facility] Hep B, Adol or Pedi Dosage 2024-06-27 00:00:00 Completed [facility] Meningococcal Vaccine 2024-06-27 00:00:00 Completed [facility] MMR 2024-06-27 00:00:00 Completed [facility] Polio (IPV/OPV) 2024-06-27 00:00:00 Completed [facility] TDAP 2024-06-27 00:00:00 Completed [facility] Varicella (varivax)(chicken pox) 2024-06-27 00:00:00 Completed [facility] DTAP 2022-03-07 00:00:00 Completed [facility] HIB 4 Dose Schedule 2022-03-07 00:00:00 Completed [facility] HEPATITIS A 2022-03-07 00:00:00 Completed [facility] Hep B, Adol or Pedi Dosage 2022-03-07 00:00:00 Completed [facility] Meningococcal Vaccine 2022-03-07 00:00:00 Completed [facility] MMR 2022-03-07 00:00:00 Completed [facility] Polio (IPV/OPV) 2022-03-07 00:00:00 Completed [facility] TDAP 2022-03-07 00:00:00 Completed [facility] Varicella (varivax)(chicken pox) 2022-03-07 00:00:00 Completed [facility] Tdap Tdap 2021-04-06 00:00:00 Completed Eric Keene Influenza, seasonal, inj Influenza, seasonal, inj 2021-04-06 00:00:00 Completed Eric Keene HEPATITIS A 2012-02-13 00:00:00 Completed [facility] HEPATITIS A 2012-02-13 00:00:00 Completed [facility] HEPATITIS A 2012-02-13 00:00:00 Completed HEPATITIS A 2010-03-06 00:00:00 Completed [facility] Meningococcal Vaccine 2010-03-06 00:00:00 Completed [facility] TDAP 2010-03-06 00:00:00 Completed [facility] Varicella (varivax)(chicken pox) 2010-03-06 00:00:00 Completed [facility] HEPATITIS A 2010-03-06 00:00:00 Completed [facility] Meningococcal Vaccine 2010-03-06 00:00:00 Completed [facility] Varicella (varivax)(chicken pox) 2010-03-06 00:00:00 Completed TDAP 2010-03-06 00:00:00 Completed [facility] Varicella (varivax)(chicken pox) 2010-03-06 00:00:00 Completed [facility] DTAP 2002-06-06 00:00:00 Completed [facility] MMR 2002-06-06 00:00:00 Completed [facility] Polio (IPV/OPV) 2002-06-06 00:00:00 Completed [facility] DTAP 2002-06-06 00:00:00 Completed [facility] MMR 2002-06-06 00:00:00 Completed [facility] DTAP 2002-06-06 00:00:00 Completed MMR 2002-06-06 00:00:00 Completed Polio (IPV/OPV) 2002-06-06 00:00:00 Completed Polio (IPV/OPV) 2002-06-06 00:00:00 Completed [facility] Varicella (varivax)(chicken pox) 1999-08-15 00:00:00 Completed [facility] Varicella (varivax)(chicken pox) 1999-08-15 00:00:00 Completed [facility] DTAP 1999-05-23 00:00:00 Completed [facility] HIB 4 Dose Schedule 1999-05-23 00:00:00 Completed [facility] MMR 1999-05-23 00:00:00 Completed [facility] Polio (IPV/OPV) 1999-05-23 00:00:00 Completed [facility] DTAP 1999-05-23 00:00:00 Completed [facility] HIB 4 Dose Schedule 1999-05-23 00:00:00 Completed [facility] MMR 1999-05-23 00:00:00 Completed [facility] DTAP 1999-05-23 00:00:00 Completed HIB 4 Dose Schedule 1999-05-23 00:00:00 Completed Polio (IPV/OPV) 1999-05-23 00:00:00 Completed Polio (IPV/OPV) 1999-05-23 00:00:00 Completed [facility] DTAP 1998 00:00:00 Completed [facility] HIB 4 Dose Schedule 1998 00:00:00 Completed [facility] Hep B, Adol or Pedi Dosage 1998 00:00:00 Completed [facility] DTAP 1998 00:00:00 Completed [facility] HIB 4 Dose Schedule 1998 00:00:00 Completed [facility] Hep B, Adol or Pedi Dosage 1998 00:00:00 Completed [facility] DTAP 1998 00:00:00 Completed HIB 4 Dose Schedule 1998 00:00:00 Completed Hep B, Adol or Pedi Dosage 1998 00:00:00 Completed DTAP 1998 00:00:00 Completed [facility] HIB 4 Dose Schedule 1998 00:00:00 Completed [facility] Polio (IPV/OPV) 1998 00:00:00 Completed [facility] DTAP 1998 00:00:00 Completed [facility] HIB 4 Dose Schedule 1998 00:00:00 Completed [facility] DTAP 1998 00:00:00 Completed HIB 4 Dose Schedule 1998 00:00:00 Completed Polio (IPV/OPV) 1998 00:00:00 Completed Polio (IPV/OPV) 1998 00:00:00 Completed [facility] DTAP 1998 00:00:00 Completed [facility] HIB 4 Dose Schedule 1998 00:00:00 Completed [facility] Polio (IPV/OPV) 1998 00:00:00 Completed [facility] DTAP 1998 00:00:00 Completed [facility] HIB 4 Dose Schedule 1998 00:00:00 Completed [facility] Polio (IPV/OPV) 1998 00:00:00 Completed [facility] Hep B, Adol or Pedi Dosage 1998 00:00:00 Completed [facility] Hep B, Adol or Pedi Dosage 1998 00:00:00 Completed [facility] Hep B, Adol or Pedi Dosage 1998 00:00:00 Completed Hep B, Adol or Pedi Dosage 1998 00:00:00 Completed [facility] Hep B, Adol or Pedi Dosage 1998 00:00:00 Completed [facility] Vital Signs Vital Name Observation Time Observation Value Comments S ource Systolic blood pressure 2024-06-21 19:04:00 132 mm[Hg] [facility] Diastolic blood pressure 2024-06-21 19:04:00 82 mm[Hg] [facility] Heart rate 2024-06-21 19:04:00 95 /min Un[facility] Respiratory rate 2024-06-21 19:04:00 18 /min [facility] Body height 2024-06-21 19:04:00 160 cm [facility] Body weight 2024-06-21 19:04:00 99.791 kg [facility] BMI 2024-06-21 19:04:00 38.97 kg/m2 [facility] Systolic blood pressure 2024-06-16 20:19:00 130 mm[Hg] [facility] Diastolic blood pressure 2024-06-16 20:19:00 88 mm[Hg] [facility] Heart rate 2024-06-16 20:19:00 79 /min Unive [facility] Body temperature 2024-06-16 20:19:00 36.5 Marcy [facility] Body height 2024-06-16 20:19:00 160 cm [facility] Body weight 2024-06-16 20:19:00 98.703 kg [facility] BMI 2024-06-16 20:19:00 38.55 kg/m2 [facility] Systolic blood pressure 2024-05-27 14:08:00 136 mm[Hg] [facility] Diastolic blood pressure 2024-05-27 14:08:00 75 mm[Hg] [facility] Heart rate 2024-05-27 14:07:00 105 /min [facility] Body temperature 2024-05-27 14:07:00 36.44 Marcy [facility] Body height 2024-05-27 14:07:00 160 cm [facility] Body weight 2024-05-27 14:07:00 99.247 kg [facility] BMI 2024-05-27 14:07:00 38.76 kg/m2 [facility] Heart rate 2022-03-07 08:00:00 88 /min [facility] Respiratory rate 2022-03-07 08:00:00 18 /min [facility] Oxygen saturation in Arterial blood by Pulse oximetry 2022-03-07 08:00:00 97 /min [facility] Systolic blood pressure 2022-03-07 07:00:00 150 mm[Hg] [facility] Diastolic blood pressure 2022-03-07 07:00:00 99 mm[Hg] [facility] Body temperature 2022-03-07 06:58:00 37.5 Marcy [facility] Body height 2022-03-07 06:58:00 157.5 cm [facility] Body weight 2022-03-07 06:58:00 90.719 kg [facility] BMI 2022-03-07 06:58:00 36.58 kg/m2 [facility] BP Systolic 2025-02-15 08:36:00 123 mm[Hg] Step hen Luisito Keene BP Diastolic 2025-02-15 08:36:00 81 mm[Hg] Pierre Keene Weight Measured 2025-02-15 08:36:00 228.00 pounds Eric Keene Height Measured 2025-02-15 08:36:00 63.00 inches Eric Keene Body Temperature 2025-02-15 08:36:00 98.90 degrees Eric F Jassi Heart Rate 2025-02-15 08:36:00 99.00 /min Valarie en F Jassi Respiratory Rate 2025-02-15 08:36:00 18.00 /min Eric F Jassi Body Temperature 2024-09-07 14:54:00 97.90 degrees Eric F Jassi Heart Rate 2024-09-07 14:54:00 97.00 /min Valarie en F Jassi Respiratory Rate 2024-09-07 14:54:00 17.00 /min Eric F Jassi BP Systolic 2024-09-07 14:54:00 127 mm[Hg] Step hen F Jassi BP Diastolic 2024-09-07 14:54:00 93 mm[Hg] Pierre phen F Jassi Weight Measured 2024-09-07 14:54:00 214.40 pounds Eric F Jassi Height Measured 2024-09-07 14:54:00 63.00 inches Eric F Jassi BP Systolic 2023-12-10 13:57:00 136 mm[Hg] Step hen F Jassi BP Diastolic 2023-12-10 13:57:00 87 mm[Hg] Pierre phen F Jassi Weight Measured 2023-12-10 13:57:00 214.00 pounds Eric F Jassi Height Measured 2023-12-10 13:57:00 63.00 inches Eric F Jassi Body Temperature 2023-12-10 13:57:00 99.30 degrees Eric F Jassi Heart Rate 2023-12-10 13:57:00 82.00 /min Valarie en F Jassi Respiratory Rate 2023-12-10 13:57:00 18.00 /min Eric F Jassi BP Systolic 2023-10-25 14:10:00 Step hen F Jassi BP Diastolic 2023-10-25 14:10:00 Pierre phen F Jassi Weight Measured 2023-10-25 14:10:00 201.60 pounds Eric F Jassi Height Measured 2023-10-25 14:10:00 63.00 inches Eric F Jassi Body Temperature 2023-10-25 14:10:00 Eric F Jassi Heart Rate 2023-10-25 14:10:00 Valarie en F Jassi Respiratory Rate 2023-10-25 14:10:00 Eric F Jassi BP Systolic 2023-09-07 09:19:00 129 mm[Hg] Step hen F Jassi BP Diastolic 2023-09-07 09:19:00 86 mm[Hg] Pierre phen F Jassi Weight Measured 2023-09-07 09:19:00 201.60 pounds Eric F Jassi Height Measured 2023-09-07 09:19:00 63.00 inches Eric F Jassi Body Temperature 2023-09-07 09:19:00 98.20 degrees Eric F Jassi Heart Rate 2023-09-07 09:19:00 83.00 /min Valarie en F Jassi Respiratory Rate 2023-09-07 09:19:00 Eric F Jassi BP Systolic 2023-04-08 14:28:00 130 mm[Hg] Step hen F Jassi BP Diastolic 2023-04-08 14:28:00 86 mm[Hg] Pierre phen F Jassi Weight Measured 2023-04-08 14:28:00 189.80 pounds Eric F Jassi Height Measured 2023-04-08 14:28:00 63.00 inches Eric F Jassi Body Temperature 2023-04-08 14:28:00 98.20 degrees Eric F Jassi Heart Rate 2023-04-08 14:28:00 87.00 /min Valarie en F Jassi Respiratory Rate 2023-04-08 14:28:00 18.00 /min Eric F Jassi BP Systolic 2021-04-06 11:31:00 111 mm[Hg] Step hen F Jassi BP Diastolic 2021-04-06 11:31:00 75 mm[Hg] Pierre phen F Jassi Weight Measured 2021-04-06 11:31:00 209.00 pounds Eric F Jassi Height Measured 2021-04-06 11:31:00 63.00 inches Eric F Jassi Body Temperature 2021-04-06 11:31:00 98.00 degrees Eric F Jassi Heart Rate 2021-04-06 11:31:00 87.00 /min Valarie en F Jassi Respiratory Rate 2021-04-06 11:31:00 Eric F Jassi Height Measured 2021-03-29 13:46:00 63.00 inches Eric F Jassi Body Temperature 2021-03-29 13:46:00 98.60 degrees Eric F Jassi Heart Rate 2021-03-29 13:46:00 90.00 /min Valarie Keene Respiratory Rate 2021-03-29 13:46:00 19.00 /min Eric Keene BP Systolic 2021-03-29 13:46:00 145 mm[Hg] Tonny Keene BP Diastolic 2021-03-29 13:46:00 79 mm[Hg] Pierre Keene Weight Measured 2021-03-29 13:46:00 208.20 pounds Eric Keene Procedures Procedure Date / Time Performed Performing Clinician Source OB TRANSVAGINAL 2024-06-21 19:35:49 [facility] [facility] OB TRANSVAGINAL 2024-06-16 22:36:29 Sloane Ball [facility] POCT URINALYSIS W/O SPECIFIC GRAVITY 2024-06-16 00:00:00 Sloane Ball [facility] RADIOLOGY DOCUMENTATION 2024-06-08 14:05:55 Doct or Unassigned, [place] [facility] OB TRANSVAGINAL 2024-05-27 14:35:54 Sloane Ball [facility] POCT TEST 2024-05-27 00:00:00 Sloane Ball [facility] POCT URINALYSIS W/O SPECIFIC GRAVITY 2024-05-27 00:00:00 Sloane Ball [facility] POCT TEST 2022-03-07 07:07:00 Cosme Valdivia [facility] COMP. METABOLIC PANEL ([id number]) 2022-03-07 07:06:00 Cosme Valdivia [facility] CBC WITH DIFF 2022-03-07 07:06:00 Cosme Valdivia [facility] URINALYSIS 2022-03-07 07:06:00 Cosme Valdivia [facility] LIPASE 2022-03-07 07:06:00 Cosme Valdivia [facility] NOTICE OF PRIVACY PRACTICES 2022-03-07 06:51:53 Doctor Unassigned, [place] [facility] CONSENT/REFUSAL FOR DIAGNOSIS AND TREATMENT 2022-03-07 06:51:22 Doctor Unassigned, [place] [facility] Encounters Start Date/Time End Date/Time Encounter Type Admission Type Attending [facility] Care Department Encounter ID Source 2025-02-15 08:29:12 2025-02-15 08:29:12 Outpatient [facility] [id number] Eric Keene 2025-02-15 00:00:00 2025-02-15 00:00:00 Outpatient Visit [facility] [id number] Eric Keene 2025-02-15 00:00:00 2025-02-15 00:00:00 Outpatient Visit [facility] [id number] Eric Keene 2024-06-08 00:00:00 2024-11-26 07:03:19 Orders Only Doctor Unassigned, [place] Doctor Unassigned, [place] [facility] [id number] 134 [id number] [facility] 2024-09-07 14:41:53 2024-09-07 14:41:53 Outpatient [facility] [id number] Eric Keene 2024-09-07 00:00:00 2024-09-07 00:00:00 Outpatient Visit [facility] [id number] Eric Keene 2024-06-23 00:00:00 2024-06-27 13:40:58 Patient Secure Msg Sloane Ball [facility] [id number] [facility] 2024-06-27 00:00:00 2024-06-27 13:17:05 Case Management Kiersten Babb [facility] [id number] [facility] 2024-06-27 11:15:00 2024-06-27 11:43:41 Outpatient R SLOANE BALL VIEN [facility] [id number] [facility] 2024-06-27 11:15:00 2024-06-27 11:30:00 Scientist Immunology Visit 2, [facility] Angy Ballliang Garcia 2, [facility] [id number] [id number] [facility] 2024-06-23 00:00:00 2024-06-23 13:17:00 Telephone [facility]loane Ball [facility] [id number] [id number] [id number] [facility] 2024-06-22 00:00:00 2024-06-23 09:38:07 Patient Secure Msg Sloane Ball [facility] [id number] [id number] [id number] [facility] 2024-06-23 00:00:00 2024-06-23 00:00:00 Outpatient R SLOANE BALL SLOANE BALL [facility] [id number] [facility] 2024-06-22 16:00:00 2024-06-22 16:00:00 Outpatient R ANGY BALLSLOANE BARRETT [facility] [id number] [facility] 2024-06-21 00:00:00 2024-06-22 12:28:44 Refill Sloane Ball [facility] BU[facility] 1.2.840.114 350.1.13.10 4.2.7.2.686 [id number] 134 [id number] [facility] 2024-06-21 00:00:00 2024-06-21 16:05:25 Refill Sloane Ball [facility] NAL BUILDING 1.2.840.114 350.1.13.10 4.2.7.2.686 [id number] 134 [id number] [facility] 2024-06-21 14:30:00 2024-06-21 14:30:00 [facility] 1.2840.114 350.1.13.10 4.2.7.2.686 [id number] 134 [id number] [facility] 2024-06-21 14:30:00 2024-06-21 14:29:48 Outpatient R BALL SLOANE AGRAWAL [facility] [id number] [facility] 2024-06-20 00:00:00 2024-06-20 15:50:50 [facility] 1.2.840.114 350.1.13.10 4.2.7.2.686 [id number] 134 [id number] [facility] 2024-06-20 11:30:00 2024-06-20 11:48:38 Outpatient R ANGY BALLSLOANE BARRETT [facility] [id number] [facility] 2024-06-20 11:30:00 2024-06-20 11:45:00 Scientist Immunology Visit 2, [facility] Ball Sloane Garcia 2, [facility] 1.2.840.114 350.1.13.10 4.2.7.2.686 [id number] [facility] 2024-06-20 00:00:00 2024-06-20 11:05:48 Refill Sloane Ball [facility] 1.2.840.114 350.1.13.10 4.2.7.2.686 [id number] 134 [id number] [facility] 2024-06-16 15:45:00 2024-06-16 16:00:00 Scientist Immunology Visit 2, Adc Lab Sloane Ball 2, [facility] Lab [facility] 1.2.840.114 350.1.13.10 4.2.7.2.686 [id number] [facility] 2024-06-16 15:15:00 2024-06-16 15:40:00 Outpatient R SLOANE BALL VIEN [facility] [id number] [facility] 2024-06-16 15:15:00 2024-06-16 15:40:00 Office Visit Sloane Ball Jose [facility] 1.2.840.114 350.1.13.10 4.2.7.2.686 [id number] [facility] 2024-06-10 10:00:00 2024-06-10 10:00:00 [facility] [id number] [facility] 2024-06-01 09:00:00 2024-06-01 09:15:00 Scientist Immunology Visit 2, Adc Lab Sloane Ball 2, [facility] Lab [facility] 1.2.840.114 350.1.13.10 4.2.7.2.686 [id number] [facility] 2024-06-01 09:00:00 2024-06-01 09:01:41 Outpatient R SLOANE BALL VIEN [facility] [id number] [facility] 2024-05-31 00:00:00 2024-05-31 11:40:45 Case Management Sloane Ball [facility] BU[facility] 1.2.840.114 350.1.13.10 4.2.7.2.686 [id number] [facility] 2024-05-30 09:00:00 2024-05-30 09:15:00 Scientist Immunology Visit 2, Adc Lab Sloane Ball 2, [facility] BUILDING 1.2.840.114 350.1.13.10 4.2.7.2.686 [id number] [facility] 2024-05-30 09:00:00 2024-05-30 08:46:28 Outpatient R SLOANE BALL VIEN [facility] [id number] [facility] 2024-05-27 00:00:00 2024-05-27 15:48:41 Telephone Sloane Ball [facility] 1.2.840.114 350.1.13.10 4.2.7.2.686 [id number] [facility] 2024-05-27 14:15:00 2024-05-27 14:15:00 Outpatient R SLOANE BALL VIEN [facility] [id number] [facility] 2024-05-27 09:45:00 2024-05-27 09:58:51 Scientist Immunology Visit 2, Adc Lab Sloane Ball 2, [facility] Lab [facility] BU[facility] 1.2.840.114 350.1.13.10 4.2.7.2.686 [id number] [facility] 2024-05-27 09:00:00 2024-05-27 09:33:32 Outpatient R SLOANE BALL VIEN [facility] [id number] [facility] 2024-05-27 09:00:00 2024-05-27 09:33:32 Initial Visit Sloane Ball [facility] BU[facility] 1.2.840.114 350.1.13.10 4.2.7.2.686 [id number] [facility] 2024-05-17 00:00:00 2024-05-17 14:40:06 Telephone Ball Sloane Garcia [facility] 1.2.840.114 350.1.13.10 4.2.7.2.686 [id number] 134 [id number] [facility] 2023-12-10 13:54:13 2023-12-10 13:54:13 Outpatient [facility] [id number] Eric Jorge Jassi 2023-09-07 09:08:49 2023-09-07 09:08:49 Outpatient [facility] [id number] Eric Jorge [place] 2023-04-08 14:18:01 2023-04-08 14:18:01 Outpatient [facility] [id number] Eric Jorge Jassi 2022-03-07 01:53:00 2022-03-07 03:37:00 Emergency X COSME VALDIVIA [facility] ERT [id number] [facility] 2022-03-07 01:53:00 2022-03-07 03:37:00 Emergency Cosme Valdivia S [facility] 1.2.840.114 350.1.13.10 4.2.7.2.686 [id number] [facility] 2022-03-07 00:00:00 2022-03-07 00:00:00 Orders Only Doctor Unassigned, [place] [facility] 1.2840.114 350.1.13.10 4.2.7.2.686 [id number] [facility] 2022-03-07 00:00:00 2022-03-07 00:00:00 Patient Secure Msg Doctor Unassigned, [place] [facility] 1.2.840.114 350.1.13.10 4.2.7.2.686 [id number] [facility] Results Test Description Test Time Test Comments Results Result Co mments Source [facility] [id number] 14:05:55 Ordered by an unspecified provider.[facility] Urinalysis w/o Specific [id number] 14:15:00* Test Item Value Reference Range Interpretation Comme nts POCT PH U (test code = 3254) n/a 5-8 POCT U LEUK EST (test code = 3263) n/a Negative - Negative POCT U NIT (test code = 3262) n/a Negative - Negati ve POCT U PROT (test code = 3259) Negative Negative - Negat ethan POCT U GLU (test code = 3256) Normal Negative - Negati ve POCT U KETONE (test code = 3258) n/a Negative - Neg ative POCT U BLD (test code = 3257) n/a Negative - Negati ve [facility] [id number] 14:15:00* Test Item Value Reference Range Interpretation Comme nts POCT PREG (test code = 1605) Positive On board controls acceptable with C Line (test code = 3574) Yes POCT PREG LOT # (test code = 3575) POCT PREG TEST DATE ( test code = 3576) [facility]. METABOLIC PANEL (39900)2022-03-07 07:41:40* Test Item Value Reference Range Interpretation Comme nts NA (test code = 4189534870) 138 mmol/L 135-145 K (test code = 2523184605) 3.7 mmol/L 3.5-5.0 CL (test code = 7605427147) 103 mmol/L 98-108 CO2 TOTAL (test code = 4201759908) 26 mmol/L 23-31 AGAP (test code = 4757287692) 2-16 BUN (test code = 7965257994) 9 mg/dL 7-23 GLUCOSE (test code = 3731382805) 150 mg/dL 70-110 H CREATININE (test code = 5566391667) 0.64 mg/dL 0.50-1.04 TOTAL BILI (test code = 9743990434) 0.3 mg/dL 0.1-1.1 CALCIUM (test code = 4569645329) 9.0 mg/dL 8.6-10.6 T PROTEIN (test code = 0550708662) 7.7 g/dL 6.3-8.2 ALBUMIN (test code = 3223033566) 4.8 g/dL 3.5-5.0 ALK PHOS (test code = 5932771133) 88 U/L 34-122 ALTv (test code = 1742-6) 19 U/L 5-35 AST(SGOT) (test code = 7947651317) 19 U/L 13-40 eGFR (test code = 0403922880) mL/min/1.73m2 SUSY (test code = SUSY) Association of Glomerular Filtration Rate (GFR) and Staging of Kidney Disease* + --+ --+ ------+| GFR (mL/min/1.73 m2) ?| With Kidney Damage ?| ?Without Kidney Damage+ --------+ --------+ +| ?>90 ?| ?Stage one ?| ? Normal ?+ ---+ ---+ -------+| ?60-89 ?| ?Stage two ?| ? Decreased GFR ? + --+ --+ ------+| ?30-59 ?| ?Stage three ?| ? Stage three ? + --+ --+ ------+| ?15-29 ?| ?Stage four ? | ? Stage four ?+ ---+ ---+ -------+| ?<15 (or dialysis) ? ?| ?Stage five ? | ? Stage five ?+ ---+ ---+ -------+ *Each stage assumes the associated GFR [...] imaging tests). Lab Interpretation (test code = 75783-2) [facility] 07:41:40* Test Item Value Reference Range Interpretation Comme nts LIPASE (test code = 2877912690) 46 U/L 0-220 Lab Interpretation (test cod e = 97808-9) Normal [facility] WITH [id number] 07:13:13* Test Item Value Reference Range Interpretation Comme nts WBC (test code = 6690-2) See_Comment H [Automated message] The system which generated this result transmitted reference range: 4.30 - 11.10 10*3/?L. The reference range was not used to interpret this result as normal/abnormal. RBC (test code = 789-8) See_Comment [Automated message] The system which generated this result transmitted reference range: 3.93 - 5.25 10*6/?L. The reference range was not used to interpret this result as normal/abnormal. HGB (test code = 718-7) 14.6 g/dL 11.6-15.0 HCT (test code = 4544-3) 43.0 % 35.7-45.2 MCV (test code = 787-2) 88.8 fL 80.6-95.5 MCH (test code = 785-6) 30.2 pg 25.9-32.8 MCHC (test code = 786-4) 34.0 g/dL 31.6-35.1 RDW-SD (test code = 23456-1) 42.7 fL 39.0-49.9 RDW-CV (test code = 788-0) 13.1 % 12.0-15.5 PLT (test code = 777-3) See_Comment [Automated message] The system which generated this result transmitted reference range: 166 - 358 10*3/?L. The reference range was not used to interpret this result as normal/abnormal. MPV (test code = 46725-1) 12.1 fL 9.5-12.9 NRBC/100 WBC (test code = 4794869383) See_Comment [Automated message] The system which generated this result transmitted reference range: 0.0 - 10.0 /100 WBCs. The reference range was not used to interpret this result as normal/abnormal. NRBC x10^3 (test code = 7899097208) <0.01 See_Comment [Automated message] The system which generated this result transmitted reference range: 10*3/?L. The reference range was not used to interpret this result as normal/abnormal. GRAN MAT (NEUT) % (test code = 770-8) 85.6 % IMM GRAN % (test code = 0682166294) 0.40 % LYMPH % (test code = 736-9) 10.4 % MONO % (test code = 5905-5) 3.2 % EOS % (test code = 713-8) 0.2 % BASO % (test code = 706-2) 0.2 % GRAN MAT x10^3(ANC) (test code = 7023246713) 14.64 10*3/uL 1.88-7.09 H IMM GRAN x10^3 (test code = 8100895417) 0.06 10*3/uL 0.00-0.06 LYMPH x10^3 (test code = 731-0) 1.77 10*3/uL 1.32-3.29 MONO x10^3 (test code = 742-7) 0.55 10*3/uL 0.33-0.92 EOS x10^3 (test code = 711-2) 0.04 10*3/uL 0.03-0.39 BASO x10^3 (test code = 704-7) 0.03 10*3/uL 0.01-0.07 Lab Interpretation (test code = 77488-7) [facility]normal [facility]PO[facility] [id number] 07:07:00* Test Item Value Reference Range Interpretation Comme nts POCT PREG (test code = 1605) negative Lab Interpretation (test cod e = 93779-6) Normal [facility] CenterGC AND CHLAMYDIA, AMPLIFIED, [id number] 00:00:00* Test Item Value Reference Range Interpretation Comme nts GONORRHEA, NAAT (test code = 53096) NEGATIVE CHLAMYDIA, NAAT (test code = 85269) NEGATIVE Eric KeeneGC AND CHLAMYDIA, AMPLIFIED, [id number] 00:00:00* Test Item Value Reference Range Interpretation Comme nts GONORRHEA, NAAT (test code = 06443) NEGATIVE CHLAMYDIA, NAAT (test code = 04249) NEGATIVE Eric Urena AND CHLAMYDIA, AMPLIFIED, [id number] 00:00:00* Test Item Value Reference Range Interpretation Comme nts GONORRHEA, NAAT (test code = 62303) NEGATIVE CHLAMYDIA, NAAT (test code = 13155) NEGATIVE Eric F AustinHIV AB/AG COMBO RFLX [id number] 00:00:00* Test Item Value Reference Range Interpretation Comme nts HIV 1/2 4TH GEN, RFLX CONF ( test code = 3514) NON-REACTIVE Eric [id number] 00:00:00* Test Item Value Reference Range Interpretation Comme nts RPR RESULT (test code = 3501) NON-REACTIVE RPR TITER (test code = 3500) NOT INDIC. TITER Eric KeeneHIV AB/AG COMBO RFLX [id number] 00:00:00* Test Item Value Reference Range Interpretation Comme nts HIV 1/2 4TH GEN, RFLX CONF ( test code = 3514) NON-REACTIVE Eric [id number] 00:00:00* Test Item Value Reference Range Interpretation Comme nts RPR RESULT (test code = 3501) NON-REACTIVE RPR TITER (test code = 3500) NOT INDIC. TITER Eric KeeneHIV AB/AG COMBO RFLX [id number] 00:00:00* Test Item Value Reference Range Interpretation Comme nts HIV 1/2 4TH GEN, RFLX CONF ( test code = 3514) NON-REACTIVE Eric KeeneNtjmfpLOI9193-65-44 00:00:00* Test Item Value Reference Range Interpretation Comme nts RPR RESULT (test code = 3501) NON-REACTIVE RPR TITER (test code = 3500) NOT INDIC. TITER Eric Keene Ron Date/Time Note Provider Source Eric Roberts [facility]2024-11-27 00:00:00 Eric Roberts [facility]2024-09-16 11:15:00 Images from the original note were not included. Venipuncture collection performed by clean technique on the left anticubitus. Total of 1 attempts were made. Slight pressure and a bandage/dressing were applied to the site(s). The patient experienced no complications. The following specimens were processed according to instructions and sent to [facility] laboratories per lab order on 06/27/2024: LT BLUE SST 1 RED LAV PPT DK GREEN (LiHep) DK GREEN (SodH) TO DK BLUE (K2) DK BLUE (S) ACD Blood Culture NIPT/NTD [place] 23175-09-12 13:16:34 Will provide work excuse per Dr Ball. Responded to [employer] message. Jay Jay Silva RN 06/23/2024 1:16 PM Jay Jay Silva [place] 11975-09-12 09:37:57 See telephone encounter. Jya Jay Silva RN 06/23/2024 9:38 AM Jay Jay Silva [place] [address]-09-12 08:31:16 Returned patients call. Patient reports heavy bleeding started late last night. Bright red bleeding. Did not notice any clots/tissue. Cramping in back/stomach/leg rated 7/10. She has taken extra strength tylenol and aleeve for her pain. This has helped the pain. 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 Patient wants to know if this is expected. Patient advised this is expected during the miscarriage process. Patient advised to rotate tylenol/aleeve for pain. Strong ER precautions given. She is requesting a note for work today. Patient advised I would speak with Dr Ball regarding a work note. Jay Jay Silva RN 06/23/2024 8:41 AM [place] [address]175-09-12 08:16:35 Roderick Motta is a 24 year old female Patient started bleeding this morning and cramping. She is unable to go to work and needs an excuse. Also, would like to discuss possible having a procedure to speed up the process as she feels is moving very slow. She is following instructions provided during last visit by Dr. Ball Patient is very concerned. [place] AlstonGenesis [id number] 11:30:00 Images from the original note were not included. Venipuncture collection performed by clean technique on the left anticubitus. Total of 1 attempts were made. Slight pressure and a bandage/dressing were applied to the site(s). The patient experienced no complications. The following specimens were processed according to instructions and sent to [facility] laboratories per lab order on 06/20/2024 : LT BLUE SST 1RST RED LAV PPT DK GREEN (LiHep) DK GREEN (SodH) TO DK BLUE (K2) DK BLUE (S) ACD Blood Culture NIPT/NTD T [place] 317264-09-09 11:04:42 Patient requesting vitamin to be prescribed. PNV sent to pharmacy. Jay Jay Silva RN 06/20/2024 11:05 AM [facility] [id number] 15:45:00 Images from the original note were not included. Venipuncture collection performed by clean technique on the left anticubitus. Total of 1 attempts were made. Slight pressure and a bandage/dressing were applied to the site(s). The patient experienced no complications. The following specimens were processed according to instructions and sent to [facility] laboratories per lab order on 06/16/2024 : LT BLUE SST 1 RED LAV PPT DK GREEN (LiHep) DK GREEN (SodH) TO DK BLUE (K2) DK BLUE (S) ACD Blood Culture NIPT/NTD [facility] [id number] 09:00:00 Images from the original note were not included. Venipuncture collection performed by clean technique on the left anticubitus. Total of 1 attempts were made. Slight pressure and a bandage/dressing were applied to the site(s). The patient experienced no complications. The following specimens were processed according to instructions and sent to [facility] laboratories per lab order on 06/01/2024 : LT BLUE SST 1 RED LAV PPT DK GREEN (LiHep) DK GREEN (SodH) TO DK BLUE (K2) DK BLUE (S) ACD Blood Culture NIPT/NTD [facility] [id number] 09:00:00 Images from the original note were not included. Venipuncture collection performed by clean technique on the left anticubitus. Total of 1 attempts were made. Slight pressure and a bandage/dressing were applied to the site(s). The patient experienced no complications. The following specimens were processed according to instructions and sent to [facility] laboratories per lab order on 05/30/2024 : LT BLUE SST 1 RED LAV PPT DK GREEN (LiHep) DK GREEN (SodH) TO DK BLUE (K2) DK BLUE (S) ACD Blood Culture NIPT/NTD [facility] [id number] 15:47:54 Images from the original note were not included. Verified and discussed [facility] results and recommendations with pt. She will repeat on Thursday. Understanding verbalized. [place] Christensen RNGenesis HospitalRfjfwj2250-42-08 15:38:06 Pt called requesting results. Would like a call back please. Is nervous and concerned. Selma MontanoGenesis HospitalJkfawd9781-88-25 15:33:57 Pt returned call for her lab results. Please assist. Thank you Parish NguyenT[place] 317264-08-16 09:45:00 Images from the original note were not included. Venipuncture collection performed by clean technique on the left anticubitus. Total of 1 attempts were made. Slight pressure and a bandage/dressing were applied to the site(s). The patient experienced no complications. The following specimens were processed according to instructions and sent to [facility] laboratories per lab order on 05/27/2024: LT BLUE SST 2 RED LAV 2 PPT DK GREEN (LiHep) DK GREEN (SodH) TO DK BLUE (K2) DK BLUE (S) ACD Blood Culture NIPT/NTD [facility] [id number] 14:39:[address] RN 05/17/2024 2:[address] [facility] 14:29:47 lmp not niall if it was 05/06 or implantation bleeding the pt says. this lasted 3 days, 02/24 the previous month for a normal period, no period in march Nakita BrownGenesis Hospital"
[2025-05-26 13:42] LABS: Absolute Lymphocytes (CBC) 2.0 K/uL (0.7-4.9); Hematocrit 43.4 % (36.0-45.0); Hemoglobin 14.4 g/dL (12.0-15.0); MCH 29.5 pg (27.0-35.0); MCHC 33.1 g/dL (32.0-36.0); MCV 89.2 fL (80-100); MPV 11.3 fL (7.6-11.3); Nucleated RBC Absolute Count 0.0 (0-0); Nucleated Red Blood Cells % 0.1 % (0-0); RBC Red Blood Cell Count 4.87 M/uL (3.86-4.86); White Blood Count 9.00 thou/uL (4.3-10.9)
[2025-05-26] MEDS ORDERED: LORazepam 2 MG/ML VIAL ONE (13:47)
[2025-05-26] MEDS ORDERED: MORPHINE 4 MG/ML SYR ONE (13:48)
[2025-05-26] MEDS ORDERED: ONDANSETRON 4 MG/2 ML VIAL ONE (13:48)
[2025-05-26 14:03] LABS: Anion Gap 9.7 mEq/L (5.0-15.0); BUN Blood Urea Nitrogen 12.0 mg/dL (7-18); Glucose Level 133.0 mg/dL (74-106); HCG, Quantitative 384.0 mIU/mL (1-3); Potassium 3.7 mEq/L (3.5-5.1)
--- NOTE | 2025-05-26 14:49 | RAD REPORT ---
EXAMINATION: US FIRST TRIMESTER TRANSVAGINAL WITH DOPPLER CLINICAL INDICATION: with pelvic pain TECHNIQUE: Real-time obstetrical ultrasonography of the maternal pelvis and first trimester was performed transvaginally. Color and spectral Doppler evaluation of the ovaries was performed. COMPARISON: May 16, 2025 FINDINGS: The uterus measures 9 x 4 x 4 cm. Fluid is present within the cervical canal. A cystic structure measuring 3 mm is present within the e ndometrium. No pole/yolk sac noted. Right ovary not visualized secondary to overlying bowel gas. Left ovary normal in size and echotexture Right and left adnexa unremarkable No significant free fluid IMPRESSION: 3 mm cystic structure within the endometrium. This could represent a gestational sac associated with a normal intrauterine . Other considerations include an incomplete and even a pseudogestational sac associated with an ectopic . This should be correlated clinically and with serial beta-hCG levels. Follow-up endovaginal sonogram in one week recommended for reevaluation
--- NOTE | 2025-05-26 16:10 | EDPHYS ---
Physician Documentation [facility] Name: Roderick Motta Age: 25 yrs Sex: Female : 2000 Arrival Date: 05/26/2025 Time: 12:59 Bed 19 Private MD: ED Physician Urbano Timmons HPI: 05/26 17:02 This 25 yrs old Female presents to ER via Ambulatory with complaints of dr5 Vaginal Bleeding, + Preg <12wks. 17:02 Patient is a 25-year-old female with history of PCOS coming in with vaginal bleeding dr5 this been going on for the past 3 days. Patient states that she was here 10 days ago and had hCG and ultrasound completed. Patient states that she has been bleeding heavier for the last 3 days that has slowed down. Patient reports intermittent abdominal cramping.. COMMUNICATIONS INTERN: 17:02 4, Full Term 1, unknown dr5 Historical: - Allergies: 13:15 No Known Drug Allergies; ll1 - PMHx: 13:15 PCOS; ll1 - PSHx: 13:15 None; ll1 - Immunization history:: Adult Immunizations up to date. - Infectious Disease History:: Denies. - Social history:: Smoking status: Patient/guardian denies using tobacco. ROS: 17:03 Constitutional: as per hpi dr5 Exam: 17:03 Constitutional: This is a well developed, well nourished patient who is awake, alert, dr5 and in no acute distress. Head/Face: Normocephalic, atraumatic. Eyes: Pupils equal round and reactive to light, extra-ocular motions intact. Lids and lashes normal. Conjunctiva and sclera are non-icteric and not injected. Cornea within normal limits. Periorbital areas with no swelling, redness, or edema. Neck: Trachea midline, no thyromegaly or masses palpated, and no cervical lymphadenopathy. Supple, full range of motion without nuchal rigidity, or vertebral point tenderness. No Meningismus. Chest/axilla: Normal chest wall appearance and motion. Nontender with no deformity. No lesions are appreciated. Cardiovascular: Regular rate and rhythm with a normal S1 and S2. Normal PMI, no JVD. No pulse deficits. Respiratory: Lungs have equal breath sounds bilaterally, clear to auscultation. No rales, rhonchi or wheezes noted. No increased work of breathing, no retractions or nasal flaring. Abdomen/GI: Soft, non-tender, non-distended Back: No spinal tenderness. No costovertebral tenderness. Full range of motion. Skin: Warm, dry with normal turgor. Normal color with no rashes, no lesions, and no evidence of cellulitis. MS/ Extremity: Pulses equal, no cyanosis. Neurovascular intact. Full, normal range of motion. Neuro: Awake and alert, GCS 15, oriented to person, place, time, and situation. Cranial nerves II-XII grossly intact. Motor strength 5/5 in all extremities. Sensory grossly intact. Cerebellar exam normal. Normal gait. Vital Signs: 13:15 BP 132 / 95; Pulse 96; Resp 17; Temp 97.5; Pulse Ox 100% ; Pain 7/10; ll1 13:50 BP 132 / 83; Pulse 79; Resp 16; Pulse Ox 99% ; me1 14:30 BP 128 / 91; Pulse 77; Resp 15; Pulse Ox 99% ; me1 15:00 BP 131 / 84; Pulse 73; Resp 15; Pulse Ox 97% ; me1 16:00 BP 114 / 81; Pulse 81; Resp 16; Pulse Ox 96% ; me1 13:15 Pain Scale: Adult ll1 MDM: 13:04 Medical Screening Exam initiated dr5 17:03 Differential diagnosis: threatened Ab, inevitable Ab, complete Ab, retained Ab, septic dr5 Ab, missed Ab, ectopic . Data reviewed: vital signs, nurses notes, lab test result(s), CBC, white blood cell count, hemoglobin, hematocrit, platelets, electrolytes, sodium, potassium, chloride, serum bicarbonate, BUN, creatinine, serum glucose, Patient is O+, radiologic studies, ultrasound. Consideration of Admission/Observation Escalation of care including admission/observation considered. Escalation considered patient found to have ectopic with continued abdominal pain.. I considered the following discharge prescriptions or medication management in the emergency department I discussed and recommended Over The Counter medications, Medications were administered in the Emergency Department. See MAR. Care significantly affected by the following chronic conditions: PCOS. Care significantly affected by the following Social Determinants of Health: Poor access to healthcare and/or lack of insurance, Poor access to transportation, Problems related to employment. Counseling: I had a detailed discussion with the patient and/or guardian regarding the historical points, exam findings, and any diagnostic results supporting the discharge/admit diagnosis, the presence of at least one elevated blood pressure reading (>120/80) during this emergency department visit, lab results, radiology results, the need for outpatient follow up, for definitive care, an OB/Gyne specialist, to return to the emergency department if symptoms worsen or persist or if there are any questions or concerns that arise at home. Medication response: Ativan, morphine, Zofran. Response to treatment: the patient's symptoms have resolved after treatment, the patient's condition has returned to base line, the patient is now symptom free. Special discussion: I discussed with the patient/guardian in detail that at this point there is no indication for admission to the hospital. It is understood, however, that if the symptoms persist or worsen the patient needs to return immediately for re-evaluation. Based on the history and exam findings, there is no indication for further emergent testing or inpatient evaluation. I discussed with the patient/guardian the need to see the OB Gyne specialist for further evaluation of the symptoms. ED course: All results given to patient. Patient is O+. Patient's hCG did not increase as appropriate for the last 10 days. Reviewed previous records. First ultrasound on May 21 revealed no IUP. Questionable cyst on ultrasound today. No adnexal tenderness noted. Will have patient come back in 48 hours for repeat hCG and ultrasound. All questions answered. Strict ER precautions given. 05/26 13:09 Order name: Abo/rh Typing; [facility]: [facility] 05/26 13:09 Order name: Basic Metabolic Panel; Complete Time: 14:08 [facility] 05/26 13:09 Order name: CBC with Diff; Complete Time: 13:48 [facility] 05/26 13:09 Order name: Quantitative Hcg; Complete Time: 14:08 dr5 05/26 13:09 Order name: US Transvaginal Ob; Complete Time: 14:55 [facility] 05/26 13:09 Order name: IV Saline Lock; Complete Time: 13:28 [facility] 05/26 13:09 Order name: Labs collected and sent; Complete Time: 13:28 [facility] 05/26 13:09 Order name: NPO; Complete Time: 13:20 dr5 Administered Medications: 13:54 Drug: Ativan IVP 1 mg IVP once Route: IVP; Site: right antecubital; me1 15:27 Follow up: Response: No adverse reaction; Anxiety decreased me1 13:54 Drug: morphine IVP or IV 4 mg IVP once over 4 mins Route: IVP; Infused Over: 4 mins; me1 Site: right antecubital; 15:27 Follow up: Response: No adverse reaction; Pain is decreased me1 13:54 Drug: Ondansetron IVP 4 mg IVP once; over 2 minutes Route: IVP; Site: right antecubital;me1 15:27 Follow up: Response: No adverse reaction; Nausea is decreased me1 Disposition Summary: 05/26/25 16:09 Discharge Ordered Notes: Location: Home dr5 Condition: Stable dr5 Diagnosis - Threatened dr5 Followup: dr5 - With: Emergency Department - When: 48 Hours - Reason: Repeat Beta-HCG (48 Hours) Followup: dr5 - With: Private Physician - When: 48 Hours - Reason: Recheck today's complaints, Continuance of care, Repeat Beta-HCG (48 Hours), Re-evaluation by your physician Discharge Instructions: - Discharge Summary Sheet dr5 - Threatened Miscarriage dr5 Forms: - Work release form dr5 - Medication Reconciliation Form dr5 - Patient Portal Instructions dr5 - Leadership Thank You Letter dr5 Signatures: Dispatcher [employer] Yudi Montgomery RN RN 1 Hien Briones RN RN me1 Gokul Villa, BUSINESS LAW PROFESSOR-C BUSINESS LAW PROFESSOR-Cdr5 Corrections: (The following items were deleted from the chart) 17:03 17:02 Patient is a 25-year-old female with history of PCOS coming in with vaginal dr5 bleeding this been going on for the past. dr5
--- NOTE | 2025-05-26 16:10 | ER ---
Nurse's Notes [facility] Name: Roderick Motta Age: 25 yrs Sex: Female : 2000 Arrival Date: 05/26/2025 Time: 12:59 Bed 19 Private MD: Diagnosis: Threatened Presentation: 05/26 13:15 Chief complaint: Patient states: Vaginal bleeding started yesterday. Heavy bleeding ll1 with clots today. About 4 weeks . G4, P1. Coronavirus screen: Client denies travel out of the [place] in the last 14 days. At this time, the client does not indicate any symptoms associated with coronavirus-19. Ebola Screen: Patient denies travel to an Ebola-affected area in the 21 days before illness onset. Initial Sepsis Screen: Does the patient meet any 2 criteria? No. Patient's initial sepsis screen is negative. Does the patient have a suspected source of infection? No. Patient's initial sepsis screen is negative. Risk Assessment: Do you want to hurt yourself or someone else? Patient reports no desire to harm self or others. Onset of symptoms was May 25, 2025. 13:15 Method Of Arrival: Ambulatory ll1 13:15 Acuity: AMADOR 3 ll1 Triage Assessment: 13:18 General: Appears uncomfortable, Behavior is calm, cooperative, appropriate for age. ll1 Pain: Complains of pain in pelvis Pain currently is 7 out of 10 on a pain scale. Quality of pain is described as aching, crampy. : Reports pain vaginal bleeding that is with clots, heavy flow. SOCIAL SERVICE LIAISON: 17:02 4, Full Term 1, unknown dr5 Historical: - Allergies: 13:15 No Known Drug Allergies; ll1 - PMHx: 13:15 PCOS; ll1 - PSHx: 13:15 None; ll1 - Immunization history:: Adult Immunizations up to date. - Infectious Disease History:: Denies. - Social history:: Smoking status: Patient/guardian denies using tobacco. Screenin:32 [facility] ED Fall Risk Assessment (Adult) History of falling in the last 3 months, me1 including since admission No falls in past 3 months (0 pts) Confusion or Disorientation No (0 pts) Intoxicated or Sedated No (0 pts) Impaired Gait No (0 pts) Mobility Assist Device Used No (0 pt) Altered Elimination No (0 pt) Score/Fall Risk Level 0 - 2 = Low Risk Maintained a safe environment, Provided non-skid footwear, Hourly rounding (assess needs \T\ fall precautionary measures) done. Abuse screen: Denies threats or abuse. Nutritional screening: No deficits noted. Tuberculosis screening: No symptoms or risk factors identified. Assessment: 14:32 General: Appears uncomfortable, obese, well groomed, well developed, Behavior is me1 cooperative, appropriate for age, anxious, crying, Reports Vaginal bleeding started yesterday. Heavy bleeding with clots today. About 4 weeks . G4, P1. Pain: Complains of pain in abdomen Pain does not radiate. Pain currently is 7 out of 10 on a pain scale. Quality of pain is described as crampy, Pain began 1 day ago. Is continuous. Neuro: Level of Consciousness is awake, alert, obeys commands, Oriented to person, place, time, situation, Appropriate for age. Cardiovascular: Patient's skin is warm and dry. Respiratory: Airway is patent Respiratory effort is even, unlabored, Respiratory pattern is regular, symmetrical. GI: No signs and/or symptoms were reported involving the gastrointestinal system. : Reports pain in bilateral lower quadrant(s) vaginal bleeding that is light flow, since yesterday. EENT: No signs and/or symptoms were reported regarding the EENT system. Derm: Skin is intact, is healthy with good turgor, Skin is normal. Musculoskeletal: Circulation, motion, and sensation intact. Range of motion: intact in all extremities. Vital Signs: 13:15 BP 132 / 95; Pulse 96; Resp 17; Temp 97.5; Pulse Ox 100% ; Pain 7/10; ll1 13:50 BP 132 / 83; Pulse 79; Resp 16; Pulse Ox 99% ; me1 14:30 BP 128 / 91; Pulse 77; Resp 15; Pulse Ox 99% ; me1 15:00 BP 131 / 84; Pulse 73; Resp 15; Pulse Ox 97% ; me1 16:00 BP 114 / 81; Pulse 81; Resp 16; Pulse Ox 96% ; me1 13:15 Pain Scale: Adult ll1 ED Course: 13:01 Patient arrived in ED. im 13:04 Gokul Villa FNP-C is PHCP. dr5 13:04 Urbano Timmons MD is Attending Physician. dr5 13:15 Arm band placed on Patient placed in an exam room, on a stretcher. ll1 13:18 Triage completed. ll1 13:19 Hien Briones, JOSH is Primary Nurse. me1 13:27 Initial lab(s) drawn, by me, sent to lab. Inserted saline lock: 22 gauge in right me1 antecubital area, using aseptic technique. 13:28 Abo/rh Typing Sent. me1 13:28 Basic Metabolic Panel Sent. me1 13:28 CBC with Diff Sent. me1 13:28 Quantitative Hcg Sent. me1 14:22 US Transvaginal Ob In Process Unspecified. EDMS 14:32 Patient has correct armband on for positive identification. Bed in low position. Call me1 light in reach. Side rails up X 1. Provided Education on: POC. Verbalized understanding.. Client placed on continuous cardiac and pulse oximetry monitoring. NIBP monitoring applied. Pulse ox on. NIBP on. 14:32 No provider procedures requiring assistance completed. me1 16:19 IV discontinued, intact, bleeding controlled, No redness/swelling at site. Pressure me1 dressing applied. Administered Medications: 13:54 Drug: Ativan IVP 1 mg IVP once Route: IVP; Site: right antecubital; me1 15:27 Follow up: Response: No adverse reaction; Anxiety decreased me1 13:54 Drug: morphine IVP or IV 4 mg IVP once over 4 mins Route: IVP; Infused Over: 4 mins; me1 Site: right antecubital; 15:27 Follow up: Response: No adverse reaction; Pain is decreased me1 13:54 Drug: Ondansetron IVP 4 mg IVP once; over 2 minutes Route: IVP; Site: right antecubital;me1 15:27 Follow up: Response: No adverse reaction; Nausea is decreased me1 Medication: 14:32 VIS not applicable for this client. me1 Outcome: 16:09 Discharge ordered by . dr5 16:19 Discharged to home ambulatory, with family, me1 16:19 Condition: stable 16:19 Discharge instructions given to patient, Instructed on discharge instructions, follow up and referral plans. Demonstrated understanding of instructions, follow-up care, 16:19 Patient left the ED. me1 Signatures: Dispatcher [employer] Yudi Montgomery, JOSH RN ll1 Kaylee Henley Michelle, RN RN me1 Gokul Villa, JDE DEVELOPER-C JDE DEVELOPER-Cdr5 Corrections: (The following items were deleted from the chart) 14:31 13:15 Chief complaint: Patient states: Vaginal bleeding started yesterday. Heavy me1 bleeding with clots today. About 4 weeks . G4, P1 ll1
[2025-05-26 18:55] VITALS: TEMP 97.5
[2025-05-26 19:03] VITALS: BP 114/81; O2SAT 96
== END 2025-05-26 16:19 | disposition home or self-care (01) ==
LOC: ER 12:59
DX: O20.0 Threatened abortion (principal)
CPT/HCPCS: 85025; 80048; 36415; 86900; 86901; 84702; 76817; 96375; 96374; 99284; J2405

== ENCOUNTER 2025-05-28 11:58 | Emergency (ER) | payer OTHER ==
--- OUTSIDE RECORDS SUMMARY | 2025-05-28 12:02 | XMS REPORT | Continuity of Care Document ---
Author Name Unknown Address [address] [facility] [address] [place] [address] Organization [facility] Address 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 Name Role Phone Camryn Jaimes Primary Care Physician Doctor Unassigned, [place] Attending Clinician U Sloane Sylvester MD Attending Clinician [phone] Kiersten Babb DNP Attending Clinician [phone] SLOANE BALL Attending Clinician Unavailable SLOANE BALL Attending Clinician Unavailable 2, [facility] Attending Clinician Unavailable COSME VALDIVIA Attending Clinician Unavailable Cosme Wood Attending Clinician [phone] Doctor Unassigned, [place] Attending Clinician U drea Payers Payer Name Policy Type Policy Number Effective Date Expirati on Date Source [employer] [place] [id number] 2018 00:00:00 2019 00:00:00 Problems Condition Name Condition Details Condition Category Status Onset Date Resolution Date Last Treatment Date Treating Clinician Comments Source Missed Missed Disease Active 9-10 00:00: 00 [facility] Obesity in Obesity in Disease Active 3-07 00:00: 00 [facility] Hirsutism Hirsutism Disease Active 06-02 00:00: 00 [facility] History of depression History of depression Disease Active 06-09 00:00: 00 [facility] History of anxiety History of anxiety Disease Active 06-09 00:00: 00 [facility] of unknown anatomic location of unknown anatomic location Disease Resolve d 05-27 00:00: 00 2024-06-21 00:00:00 2024-06-21 14:35:38 [facility] High risk , antepartum High risk , antepartum Disease Resolve d 12-16 00:00: 00 2024-05-27 00:00:00 2024-05-27 09:32:33 [facility] Primigravi da in first trimester Primigravi da in first trimester Disease Resolve d 12-16 00:00: 00 2024-05-27 00:00:00 2024-05-27 09:32:32 [facility] Abnormal laboratory test result Abnormal laboratory test result Disease Resolve d 06-02 00:00: 00 2018-12-16 00:00:00 2018-12-16 11:06:08 [facility] Contracept ethan management Contracept ethan management Disease Resolve d 01-22 00:00: 00 2018-12-16 00:00:00 2018-12-16 11:06:04 [facility] Screening for STD (sexually transmitte d disease) Screening for STD (sexually transmitte d disease) Disease Resolve d 06-08 00:00: 00 2018-12-16 00:00:00 2018-12-16 11:05:58 [facility] Risky sexual behavior Risky sexual behavior Disease Resolve d 06-08 00:00: 00 2018-12-16 00:00:00 2018-12-16 11:06:01 [facility] BV (bacterial vaginosis) BV (bacterial vaginosis) Disease Resolve d 01-22 00:00: 00 2016-06-02 00:00:00 2016-06-02 16:39:28 [facility] Herpes, vulvar Herpes, vulvar Disease Resolve d 2-01 00:00: 00 2016-01-23 00:00:00 2016-01-23 14:48:05 [facility] Encounter for surveillan ce of nuvaring Encounter for surveillan ce of nuvaring Disease Resolve d 06-09 00:00: 00 2016-01-23 00:00:00 2016-01-23 14:48:38 [facility] Surveillan ce of other previously prescribed contracept ethan method Surveillan ce of other previously prescribed contracept ethan method Disease Resolve d 06-09 00:00: 00 2015-06-09 00:00:00 2015-06-09 20:55:18 [facility] Depression Depression Disease Resolve d 05-30 00:00: 00 2015-06-09 00:00:00 2015-06-09 20:52:32 [facility] Depo-Prove ra contracept ethan status Depo-Prove ra contracept ethan status Disease Resolve d 05-15 00:00: 00 2015-06-08 00:00:00 2015-06-08 16:09:54 [facility] Allergies, Adverse Reactions, Alerts Allergy Name Allergy Type Status Severity Reaction(s) Onset Date Inactive Date Treating Clinician Comments Source NO KNOWN ALLERGIE S Drug Class Active [facility] Social History Social Habit Start Date Stop Date Quantity Comments Source [facility] History of Social function 2024-06-21 00:00:00 2024-06-21 00:00:00 [facility] Alcoholic beverage intake 2024-05-27 00:00:00 2024-05-27 00:00:00 0 /d [facility] Tobacco use and exposure 2024-05-27 00:00:00 2024-05-27 00:00:00 Smokeless tobacco non-user [facility] Exposure to SARS-CoV-2 (event) 2022-02-25 00:00:00 2022-03-07 01:58:00 Not sure [facility] Alcohol intake 2022-03-07 00:00:00 2022-03-07 00:00:00 0 /d [facility] Sex assigned at 2000 00:00:00 2000 00:00:00 [facility] Smoking Status Start Date Stop Date Source Never smoked tobacco [facility] Medications Ordered Medication Name Filled Medication Name Start Date Stop Date Current Medication? Ordering Clinician Indication Dosage Frequency Signature (SIG) Comments Components Source Bromfed DM 2 mg-30 mg-10 mg/5 mL oral syrup 2023-10 00:00: 00 Yes 10mg/5 mL Eric Keene PNV 67-iron ps-folate no.1-dha (VITAFOL ULTRA) 29 mg iron- 1 mg-200 mg Cap 06-20 00:00: 00 06-20 00:00 :00 No [id number] 1{tbl} Take 1 tablet by mouth in the morning. If insurance does not cover can substituen t with any other mediation that contains components . [facility] progesteron e 200 mg capsule 05-31 00:00: [id number] 1 tab vaginally QHS [facility] azithromyci n 250 mg tablet 00:00: 00 Yes 1mg Eric Keene TAKE 10 ML EVERY 4-6 HOURS NEEDED 2022-10 00:00: 00 01-11 00:00 :00 No [id number] Eric Keene TAKE 1 TAB 4 TIMES [...] 1 dose, On Thu03/07/22 at 0430, STAT [facility] metoclopram jerman HCl (REGLAN) injection 10 mg 03-07 09:30: 00 03-07 21:29 :00 No 10mg 10 mg, Slow IV Push, ONCE, 1 dose, On Thu03/07/22 at 0430, BO [facility] dicyclomine (BENTYL) tablet 20 mg 03-07 08:15: 00 03-07 07:12 :00 No 20mg 20 mg, Oral, ONCE, 1 dose, On Thu03/07/22 at 0315, Routine [facility] ondansetron (ZOFRAN (PF)) injection 4 mg 03-07 08:15: 00 03-07 07:12 :00 No 4mg 4 mg, Slow IV Push, ONCE, 1 dose, On Thu03/07/22 at 0315, BO [facility] ketorolac (TORADOL) injection 30 mg 03-07 08:15: 03-07 07:12 :00 No 30mg 30 mg, Slow IV Push, ONCE, 1 dose, On Thu03/07/22 at 0315, BO
[facility] member approving Restricted medication : COSME VALDIVIA [facility] proMETHazin e 25 mg tablet 03-07 00:00: 00 Yes [id number] 25mg Take 1 tablet by mouth every 6 (six) hours as needed for Nausea and Vomiting (N/V). [facility] Zithromax 250 mg tablet - 00:00: 00 [...] mg combo pack 12-16 00:00: 00 Yes [id number] 1{packe t} Take 1 Packet by mouth daily. [facility] vit 33-iron-fol ic-dha (SELECT-OB + DHA) 29 mg iron-1 mg -250 mg combo pack 12-16 00:00: 00 06-20 00:00 :00 No [id number] 1{packe t} Take 1 Packet by mouth daily. [facility] Immunizations Ordered Immunization Name Filled Immunization Name Date Status Comments Source DTAP 2024-06-27 00:00:00 Completed [facility] HIB 4 Dose Schedule 2024-06-27 00:00:00 Completed [facility] HEPATITIS A 2024-06-27 00:00:00 Completed [facility] Hep B, Adol or Pedi Dosage 2024-06-27 00:00:00 Completed [facility] Meningococcal Vaccine 2024-06-27 00:00:00 Completed [facility] MMR 2024-06-27 00:00:00 Completed [facility] Polio (IPV/OPV) 2024-06-27 00:00:00 Completed [facility] TDAP 2024-06-27 00:00:00 Completed [facility] Varicella (varivax)(chicken pox) 2024-06-27 00:00:00 Completed [facility] DTAP 2022-03-07 00:00:00 Completed [facility] HIB 4 Dose Schedule 2022-03-07 00:00:00 Completed [facility] HEPATITIS A 2022-03-07 00:00:00 Completed [facility] Hep B, Adol or Pedi Dosage 2022-03-07 00:00:00 Completed [facility] Meningococcal Vaccine 2022-03-07 00:00:00 Completed [facility] MMR 2022-03-07 00:00:00 Completed [facility] Polio (IPV/OPV) 2022-03-07 00:00:00 Completed [facility] TDAP 2022-03-07 00:00:00 Completed [facility] Varicella (varivax)(chicken pox) 2022-03-07 00:00:00 Completed [facility] Tdap Tdap 2021-04-06 00:00:00 Completed Eric Keene Influenza, seasonal, inj Influenza, seasonal, inj 2021-04-06 00:00:00 Completed Eric Keene HEPATITIS A 2012-02-13 00:00:00 Completed [facility] HEPATITIS A 2012-02-13 00:00:00 Completed [facility] HEPATITIS A 2012-02-13 00:00:00 Completed HEPATITIS A 2010-03-06 00:00:00 Completed [facility] Meningococcal Vaccine 2010-03-06 00:00:00 Completed [facility] TDAP 2010-03-06 00:00:00 Completed [facility] Varicella (varivax)(chicken pox) 2010-03-06 00:00:00 Completed [facility] HEPATITIS A 2010-03-06 00:00:00 Completed [facility] Meningococcal Vaccine 2010-03-06 00:00:00 Completed [facility] Varicella (varivax)(chicken pox) 2010-03-06 00:00:00 Completed TDAP 2010-03-06 00:00:00 Completed [facility] Varicella (varivax)(chicken pox) 2010-03-06 00:00:00 Completed [facility] DTAP 2002-06-06 00:00:00 Completed [facility] MMR 2002-06-06 00:00:00 Completed [facility] Polio (IPV/OPV) 2002-06-06 00:00:00 Completed [facility] DTAP 2002-06-06 00:00:00 Completed [facility] MMR 2002-06-06 00:00:00 Completed [facility] DTAP 2002-06-06 00:00:00 Completed MMR 2002-06-06 00:00:00 Completed Polio (IPV/OPV) 2002-06-06 00:00:00 Completed Polio (IPV/OPV) 2002-06-06 00:00:00 Completed [facility] Varicella (varivax)(chicken pox) 1999-08-15 00:00:00 Completed [facility] Varicella (varivax)(chicken pox) 1999-08-15 00:00:00 Completed [facility] DTAP 1999-05-23 00:00:00 Completed [facility] HIB 4 Dose Schedule 1999-05-23 00:00:00 Completed [facility] MMR 1999-05-23 00:00:00 Completed [facility] Polio (IPV/OPV) 1999-05-23 00:00:00 Completed [facility] DTAP 1999-05-23 00:00:00 Completed [facility] HIB 4 Dose Schedule 1999-05-23 00:00:00 Completed [facility] MMR 1999-05-23 00:00:00 Completed [facility] DTAP 1999-05-23 00:00:00 Completed HIB 4 Dose Schedule 1999-05-23 00:00:00 Completed Polio (IPV/OPV) 1999-05-23 00:00:00 Completed Polio (IPV/OPV) 1999-05-23 00:00:00 Completed [facility] DTAP 1998 00:00:00 Completed [facility] HIB 4 Dose Schedule 1998 00:00:00 Completed [facility] Hep B, Adol or Pedi Dosage 1998 00:00:00 Completed [facility] DTAP 1998 00:00:00 Completed [facility] HIB 4 Dose Schedule 1998 00:00:00 Completed [facility] Hep B, Adol or Pedi Dosage 1998 00:00:00 Completed [facility] DTAP 1998 00:00:00 Completed HIB 4 Dose Schedule 1998 00:00:00 Completed Hep B, Adol or Pedi Dosage 1998 00:00:00 Completed DTAP 1998 00:00:00 Completed [facility] HIB 4 Dose Schedule 1998 00:00:00 Completed [facility] Polio (IPV/OPV) 1998 00:00:00 Completed [facility] DTAP 1998 00:00:00 Completed [facility] HIB 4 Dose Schedule 1998 00:00:00 Completed [facility] DTAP 1998 00:00:00 Completed HIB 4 Dose Schedule 1998 00:00:00 Completed Polio (IPV/OPV) 1998 00:00:00 Completed Polio (IPV/OPV) 1998 00:00:00 Completed [facility] DTAP 1998 00:00:00 Completed [facility] HIB 4 Dose Schedule 1998 00:00:00 Completed [facility] Polio (IPV/OPV) 1998 00:00:00 Completed [facility] DTAP 1998 00:00:00 Completed [facility] HIB 4 Dose Schedule 1998 00:00:00 Completed [facility] Polio (IPV/OPV) 1998 00:00:00 Completed [facility] Hep B, Adol or Pedi Dosage 1998 00:00:00 Completed [facility] Hep B, Adol or Pedi Dosage 1998 00:00:00 Completed [facility] Hep B, Adol or Pedi Dosage 1998 00:00:00 Completed Hep B, Adol or Pedi Dosage 1998 00:00:00 Completed [facility] Hep B, Adol or Pedi Dosage 1998 00:00:00 Completed [facility] Vital Signs Vital Name Observation Time Observation Value Comments S ource Systolic blood pressure 2024-06-21 19:04:00 132 mm[Hg] [facility] Diastolic blood pressure 2024-06-21 19:04:00 82 mm[Hg] [facility] Heart rate 2024-06-21 19:04:00 95 /min [facility] Respiratory rate 2024-06-21 19:04:00 18 /min [facility] Body height 2024-06-21 19:04:00 160 cm [facility] Body weight 2024-06-21 19:04:00 99.791 kg [facility] BMI 2024-06-21 19:04:00 38.97 kg/m2 [facility] Systolic blood pressure 2024-06-16 20:19:00 130 mm[Hg] [facility] Diastolic blood pressure 2024-06-16 20:19:00 88 mm[Hg] [facility] Heart rate 2024-06-16 20:19:00 79 /min [facility] Body temperature 2024-06-16 20:19:00 36.5 Marcy [facility] Body height 2024-06-16 20:19:00 160 cm [facility] Body weight 2024-06-16 20:19:00 98.703 kg [facility] BMI 2024-06-16 20:19:00 38.55 kg/m2 [facility] Systolic blood pressure 2024-05-27 14:08:00 136 mm[Hg] [facility] Diastolic blood pressure 2024-05-27 14:08:00 75 mm[Hg] [facility] Heart rate 2024-05-27 14:07:00 105 /min [facility] Body temperature 2024-05-27 14:07:00 36.44 Marcy [facility] Body height 2024-05-27 14:07:00 160 cm [facility] Body weight 2024-05-27 14:07:00 99.247 kg [facility] BMI 2024-05-27 14:07:00 38.76 kg/m2 [facility] Heart rate 2022-03-07 08:00:00 88 /min [facility] Respiratory rate 2022-03-07 08:00:00 18 /min [facility] Oxygen saturation in Arterial blood by Pulse oximetry 2022-03-07 08:00:00 97 /min [facility] Systolic blood pressure 2022-03-07 07:00:00 150 mm[Hg] [facility] Diastolic blood pressure 2022-03-07 07:00:00 99 mm[Hg] [facility] Body temperature 2022-03-07 06:58:00 37.5 Marcy [facility] Body height 2022-03-07 06:58:00 157.5 cm [facility] Body weight 2022-03-07 06:58:00 90.719 kg [facility] BMI 2022-03-07 06:58:00 36.58 kg/m2 [facility] BP Systolic 2025-02-15 08:36:00 123 [...] Source OB TRANSVAGINAL 2024-06-21 19:35:49 Sloane Ball [facility] OB TRANSVAGINAL 2024-06-16 22:36:29 Sloane Ball [facility] POCT URINALYSIS W/O SPECIFIC GRAVITY 2024-06-16 00:00:00 Sloane Ball [facility] RADIOLOGY DOCUMENTATION 2024-06-08 14:05:55 Doct or Unassigned, [place] [facility] OB TRANSVAGINAL 2024-05-27 14:35:54 Sloane Ball [facility] POCT TEST 2024-05-27 00:00:00 Sloane Ball [facility] POCT URINALYSIS W/O SPECIFIC GRAVITY 2024-05-27 00:00:00 Sloane Ball [facility] POCT TEST 2022-03-07 07:07:00 Cosme Valdivia [facility] COMP. METABOLIC PANEL ([id number]) 2022-03-07 07:06:00 Cosme Valdivia [facility] CBC WITH DIFF 2022-03-07 07:06:00 Cosme Valdivia [facility] URINALYSIS 2022-03-07 07:06:00 Cosme Valdivia [facility] LIPASE 2022-03-07 07:06:00 Cosme Valdivia [facility] NOTICE OF PRIVACY PRACTICES 2022-03-07 06:51:53 Doctor Unassigned, [place] [facility] CONSENT/REFUSAL FOR DIAGNOSIS AND TREATMENT 2022-03-07 06:51:22 Doctor Unassigned, [place] [facility] Encounters Start Date/Time End Date/Time Encounter Type Admission Type Attending [facility] Care Department Encounter ID Source 2025-02-15 08:29:12 2025-02-15 08:29:12 Outpatient [facility] [id number] Eric Keene 2025-02-15 00:00:00 2025-02-15 00:00:00 Outpatient Visit [facility] [id number] Eric Keene 2025-02-15 00:00:00 2025-02-15 00:00:00 Outpatient Visit [facility] [id number] Eric Keene 2024-06-08 00:00:00 2024-11-26 07:03:19 Orders Only Doctor Unassigned, [place] Doctor Unassigned, [place] [facility] 1.2.840.114 350.1.13.10 4.2.7.2.686 [id number] [facility] 2024-09-07 14:41:53 2024-09-07 14:41:53 Outpatient [facility] [id number] Eric Keene 2024-09-07 00:00:00 2024-09-07 00:00:00 Outpatient Visit [facility] [id number] Eric Keene 2024-06-23 00:00:00 2024-06-27 13:40:58 Patient Secure Msg Sloane Ball [facility] 1.2.840.114 350.1.13.10 4.2.7.2.686 [id number] [facility] 2024-06-27 00:00:00 2024-06-27 13:17:05 Case Management Kiersten Babb [facility] 1.2.840.114 350.1.13.10 4.2.7.2.686 [id number] [facility] 2024-06-27 11:15:00 2024-06-27 11:43:41 Outpatient R SLOANE BALL VIEN [facility] [id number] [facility] 2024-06-27 11:15:00 2024-06-27 11:30:00 Civil Engineering Specialist Visit 2, [facility] Angy Ballliang Garcia 2, [facility] 1.2.840.114 350.1.13.10 4.2.7.2.686 [id number] [facility] 2024-06-23 00:00:00 2024-06-23 13:17:00 Telephone [facility]ane Ball [facility] 1.2.840.114 350.1.13.10 4.2.7.2.686 [id number] [facility] 2024-06-22 00:00:00 2024-06-23 09:38:07 Patient Secure Msg Sloane Ball [facility] 1.2.840.114 350.1.13.10 4.2.7.2.686 [id number] [facility] 2024-06-23 00:00:00 2024-06-23 00:00:00 Outpatient R SLOANE BALL SLOANE BALL [facility] [id number] [facility] 2024-06-22 16:00:00 2024-06-22 16:00:00 Outpatient R ANGY BALLSLOANE BARRETT [facility] [id number] [facility] 2024-06-21 00:00:00 2024-06-22 12:28:44 Refill Sloane Ball [facility] 1.2.840.114 350.1.13.10 4.2.7.2.686 [id number] [facility] 2024-06-21 00:00:00 2024-06-21 16:05:25 Refill Sloane Ball [facility] 1.2.840.114 350.1.13.10 4.2.7.2.686 [id number] [facility] 2024-06-21 14:30:00 2024-06-21 14:30:00 Office Visit [facility] 1.2840.114 350.1.13.10 4.2.7.2.686 [id number] [facility] 2024-06-21 14:30:00 2024-06-21 14:29:48 Outpatient R BALL SLOANE AGRAWAL [facility] [id number] [facility] 2024-06-20 00:00:00 2024-06-20 15:50:50 [facility] 1.2.840.114 350.1.13.10 4.2.7.2.686 [id number] [facility] 2024-06-20 11:30:00 2024-06-20 11:48:38 Outpatient R ANGY BALLSLOANE BARRETT [facility] [id number] [facility] 2024-06-20 11:30:00 2024-06-20 11:45:00 Civil Engineering Specialist Visit 2, [facility] Ball Sloane Garcia 2, [facility] 1.2.840.114 350.1.13.10 4.2.7.2.686 [id number] [facility] 2024-06-20 00:00:00 2024-06-20 11:05:48 Refill Sloane Ball [facility] 1.2.840.114 350.1.13.10 4.2.7.2.686 [id number] [facility] 2024-06-16 15:45:00 2024-06-16 16:00:00 Civil Engineering Specialist Visit 2, [facility] Sloane Ball 2, [facility] 1.2.840.114 350.1.13.10 4.2.7.2.686 [id number] [facility] 2024-06-16 15:15:00 2024-06-16 15:40:00 Outpatient R SLOANE BALL VIEN [facility] [id number] [facility] 2024-06-16 15:15:00 2024-06-16 15:40:00 Office Visit Sloane Ball Jose [facility] 1.2.840.114 350.1.13.10 4.2.7.2.686 [id number] [facility] 2024-06-10 10:00:00 2024-06-10 10:00:00 Outpatient R SLOANE BALL [facility] [id number] [facility] 2024-06-01 09:00:00 2024-06-01 09:15:00 Civil Engineering Specialist Visit 2, [facility] Sloane Ball 2, [facility] 1.2.840.114 350.1.13.10 4.2.7.2.686 [id number] [facility] 2024-06-01 09:00:00 2024-06-01 09:01:41 Outpatient R SLOANE BALL VIEN [facility] [id number] [facility] 2024-05-31 00:00:00 2024-05-31 11:40:45 Case Management Sloane Ball [facility] 1.2.840.114 350.1.13.10 4.2.7.2.686 [id number] [facility] 2024-05-30 09:00:00 2024-05-30 09:15:00 Civil Engineering Specialist Visit 2, [facility] Sloane Ball 2, [facility] 1.2.840.114 350.1.13.10 4.2.7.2.686 [id number] [facility] 2024-05-30 09:00:00 2024-05-30 08:46:28 Outpatient R SLOANE BALL VIEN [facility] [id number] [facility] 2024-05-27 00:00:00 2024-05-27 15:48:41 Telephone Sloane Ball [facility] 1.2.840.114 350.1.13.10 4.2.7.2.686 [id number] [facility] 2024-05-27 14:15:00 2024-05-27 14:15:00 Outpatient R SLOANE BALL VIEN [facility] [id number] [facility] 2024-05-27 09:45:00 2024-05-27 09:58:51 Civil Engineering Specialist Visit 2, [facility] Sloane Ball 2, [facility] 1.2.840.114 350.1.13.10 4.2.7.2.686 [id number] [facility] 2024-05-27 09:00:00 2024-05-27 09:33:32 Outpatient R SLOANE BALL VIEN [facility] [id number] [facility] 2024-05-27 09:00:00 2024-05-27 09:33:32 Initial Visit Sloane Ball [facility] 1.2.840.114 350.1.13.10 4.2.7.2.686 [id number] [facility] 2024-05-17 00:00:00 2024-05-17 14:40:06 Telephone Ball Sloane Garcia [facility] 1.2.840.114 350.1.13.10 4.2.7.2.686 [id number] [facility] 2023-12-10 13:54:13 2023-12-10 13:54:13 Outpatient [facility] [id number] Eric Jorge Jassi 2023-09-07 09:08:49 2023-09-07 09:08:49 Outpatient [facility] [id number] Eric Jorge [place] 2023-04-08 14:18:01 2023-04-08 14:18:01 Outpatient [facility] [id number] Eric Jorge Jassi 2022-03-07 01:53:00 2022-03-07 03:37:00 Emergency X COSME VALDIVIA [facility] ERT [id number] [facility] 2022-03-07 01:53:00 2022-03-07 03:37:00 Emergency Cosme Valdivia S [facility] 1.2.840.114 350.1.13.10 4.2.7.2.686 [id number] [facility] 2022-03-07 00:00:00 2022-03-07 00:00:00 Orders Only Doctor Unassigned, [place] [facility] 1.2840.114 350.1.13.10 4.2.7.2.686 [id number] [facility] 2022-03-07 00:00:00 2022-03-07 00:00:00 Patient Secure Msg Doctor Unassigned, [place] [facility] 1.2.840.114 350.1.13.10 4.2.7.2.686 [id number] [facility] Results Test Description Test Time Test Comments Results Result Co mments Source [id number] 14:05:55 Ordered by an unspecified provider.[facility] Urinalysis w/o Specific [id number] 14:15:00* Test Item Value Reference Range Interpretation [...] = 3257) n/a Negative - Negati ve [facility] [id number] 14:15:00* Test Item Value Reference Range Interpretation Comme nts POCT PREG (test code = 1605) Positive On board controls acceptable with C Line (test code = 3574) Yes POCT PREG LOT # (test code = 3575) POCT PREG TEST DATE ( test code = 3576) [facility]. METABOLIC PANEL (48112)2022-03-07 07:41:40* Test Item Value Reference Range Interpretation Comme nts NA (test code = 6309558280) 138 mmol/L 135-145 K (test code = 2544951812) 3.7 mmol/L 3.5-5.0 CL (test code = 1331653460) 103 mmol/L 98-108 CO2 TOTAL (test code = 5357156135) 26 mmol/L 23-31 AGAP (test code = 7045645311) 2-16 BUN (test code = 1773873213) 9 mg/dL 7-23 GLUCOSE (test code = 3866340324) 150 mg/dL 70-110 H CREATININE (test code = 0006047496) 0.64 mg/dL 0.50-1.04 TOTAL BILI (test code = 6273733436) 0.3 mg/dL 0.1-1.1 CALCIUM (test code = 3783124086) 9.0 mg/dL 8.6-10.6 T PROTEIN (test code = 1982575597) 7.7 g/dL 6.3-8.2 ALBUMIN (test code = 0352259071) 4.8 g/dL 3.5-5.0 ALK PHOS (test code = 9362102497) 88 U/L 34-122 ALTv (test code = 1742-6) 19 U/L 5-35 AST(SGOT) (test code = 7247676149) 19 U/L 13-40 eGFR (test code = 9032016519) mL/min/1.73m2 SUSY (test code = SUSY) Association [...] imaging tests). Lab Interpretation (test code = 49748-7) [facility] Test Item Value Reference Range Interpretation Comme nts LIPASE (test code = 0897940165) 46 U/L 0-220 Lab Interpretation (test cod e = 39027-4) Normal [facility] WITH [id number] 07:13:13* Test Item Value Reference Range Interpretation [...] 34.0 g/dL 31.6-35.1 RDW-SD (test code = 95737-1) 42.7 fL 39.0-49.9 RDW-CV (test code = 788-0) 13.1 % 12.0-15.5 PLT (test code = 777-3) See_Comment [Automated message] The system which generated this result transmitted reference range: 166 - 358 10*3/?L. The reference range was not used to interpret this result as normal/abnormal. MPV (test code = 65795-7) 12.1 fL 9.5-12.9 NRBC/100 WBC (test code = 2530822451) See_Comment [Automated message] The system which generated this result transmitted reference range: 0.0 - 10.0 /100 WBCs. The reference range was not used to interpret this result as normal/abnormal. NRBC x10^3 (test code = 4625441278) <0.01 See_Comment [Automated message] The system which generated this result transmitted reference range: 10*3/?L. The reference range was not used to interpret this result as normal/abnormal. GRAN MAT (NEUT) % (test code = 770-8) 85.6 % IMM GRAN % (test code = 5932895308) 0.40 % LYMPH % (test code = 736-9) 10.4 % MONO % (test code = 5905-5) 3.2 % EOS % (test code = 713-8) 0.2 % BASO % (test code = 706-2) 0.2 % GRAN MAT x10^3(ANC) (test code = 0642697772) 14.64 10*3/uL 1.88-7.09 H IMM GRAN x10^3 (test code = 3511409840) 0.06 10*3/uL 0.00-0.06 LYMPH x10^3 (test code = 731-0) 1.77 10*3/uL 1.32-3.29 MONO x10^3 (test code = 742-7) 0.55 10*3/uL 0.33-0.92 EOS x10^3 (test code = 711-2) 0.04 10*3/uL 0.03-0.39 BASO x10^3 (test code = 704-7) 0.03 10*3/uL 0.01-0.07 Lab Interpretation (test code = 99596-4) [facility] [id number] 07:07:00* Test Item Value Reference Range Interpretation Comme nts POCT PREG (test code = 1605) negative Lab Interpretation (test cod e = 75596-3) Normal [facility] CenterGC AND CHLAMYDIA, AMPLIFIED, [id number] 00:00:00* Test Item Value Reference Range Interpretation Comme nts GONORRHEA, NAAT (test code = 63795) NEGATIVE CHLAMYDIA, NAAT (test code = 21911) NEGATIVE Eric KeeneGC AND CHLAMYDIA, AMPLIFIED, [id number] 00:00:00* Test Item Value Reference Range Interpretation Comme nts GONORRHEA, NAAT (test code = 96895) NEGATIVE CHLAMYDIA, NAAT (test code = 90282) NEGATIVE Eric Urena AND CHLAMYDIA, AMPLIFIED, [id number] 00:00:00* Test Item Value Reference Range Interpretation Comme nts GONORRHEA, NAAT (test code = 34766) NEGATIVE CHLAMYDIA, NAAT (test code = 72508) NEGATIVE Eric F AustinHIV AB/AG COMBO RFLX [id number] 00:00:00* Test Item Value Reference Range Interpretation Comme nts HIV 1/2 4TH GEN, RFLX CONF ( test code = 3514) NON-REACTIVE Eric [id number] 00:00:00* Test Item Value Reference Range Interpretation Comme nts RPR RESULT (test code = 3501) NON-REACTIVE RPR TITER (test code = 3500) NOT INDIC. TITER Eric KeeneHIV AB/AG COMBO RFLX [id number] 00:00:00* Test Item Value Reference Range Interpretation Comme nts HIV 1/2 4TH GEN, RFLX CONF ( test code = 3514) NON-REACTIVE Eric [id number] 00:00:00* Test Item Value Reference Range Interpretation Comme nts RPR RESULT (test code = 3501) NON-REACTIVE RPR TITER (test code = 3500) NOT INDIC. TITER Eric KeeneHIV AB/AG COMBO RFLX [id number] 00:00:00* Test Item Value Reference Range Interpretation Comme nts HIV 1/2 4TH GEN, RFLX CONF ( test code = 3514) NON-REACTIVE Eric KeeneXjdasaYUS4375-13-30 00:00:00* Test Item Value Reference Range Interpretation Comme nts RPR RESULT (test code = 3501) NON-REACTIVE RPR TITER (test code = 3500) NOT INDIC. TITER Eric Keene Ron Date/Time Note Provider Source Eric Roberts [facility]2024-11-27 00:00:00 Eric Roberts [facility]2024-09-16 11:15:00 Images from the original note were not included. Venipuncture collection performed by clean technique on the left anticubitus. Total of 1 attempts were made. Slight pressure and a bandage/dressing were applied to the site(s). The patient experienced no complications. The following specimens were processed according to instructions and sent to [facility] laboratories per lab order on 06/27/2024: LT BLUE SST 1 RED LAV PPT DK GREEN (LiHep) DK GREEN (SodH) TO DK BLUE (K2) DK BLUE (S) ACD Blood Culture NIPT/NTD [place] [address]-09-12 13:16:34 Will provide work excuse per Dr Ball. Responded to [employer] message. Jay Jay Silva RN 06/23/2024 1:16 PM Jay Jay Silva [place] [address]-09-12 09:37:57 See telephone encounter. Jay Jay Silva RN 06/23/2024 9:38 AM Jay Jay Silva [place] [address]-09-12 08:31:16 Returned patients call. Patient reports heavy bleeding started late last night. Bright red bleeding. Did not notice any clots/tissue. Cramping in back/stomach/leg rated 7/10. She has taken extra strength tylenol and aleeve for her pain. This has helped the pain. 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 Patient wants to know if this is expected. Patient advised this is expected during the miscarriage process. Patient advised to rotate tylenol/aleeve for pain. Strong ER precautions given. She is requesting a note for work today. Patient advised I would speak with Dr Ball regarding a work note. Jay Jay Silva RN 06/23/2024 8:41 AM [place] [address]-09-12 08:16:35 Rodreick Motta is a 24 year old female Patient started bleeding this morning and cramping. She is unable to go to work and needs an excuse. Also, would like to discuss possible having a procedure to speed up the process as she feels is moving very slow. She is following instructions provided during last visit by Dr. Ball Patient is very concerned. Jamaica AlstonCleveland Clinic Euclid HospitalOzyssb3707-31-80 11:30:00 Images from the original note were not included. Venipuncture collection performed by clean technique on the left anticubitus. Total of 1 attempts were made. Slight pressure and a bandage/dressing were applied to the site(s). The patient experienced no complications. The following specimens were processed according to instructions and sent to [facility] laboratories per lab order on 06/20/2024 : LT BLUE SST 1RST RED LAV PPT DK GREEN (LiHep) DK GREEN (SodH) TO DK BLUE (K2) DK BLUE (S) ACD Blood Culture NIPT/NTD T [place] 752374-09-09 11:04:42 Patient requesting vitamin to be prescribed. PNV sent to pharmacy. Jay Jay Silva RN 06/20/2024 11:05 AM [facility] HospitalSgxsyv8161-62-76 15:45:00 Images from the original note were not included. Venipuncture collection performed by clean technique on the left anticubitus. Total of 1 attempts were made. Slight pressure and a bandage/dressing were applied to the site(s). The patient experienced no complications. The following specimens were processed according to instructions and sent to [facility] laboratories per lab order on 06/16/2024 : LT BLUE SST 1 RED LAV PPT DK GREEN (LiHep) DK GREEN (SodH) TO DK BLUE (K2) DK BLUE (S) ACD Blood Culture NIPT/NTD [facility] HospitalZzhlqo8250-84-42 09:00:00 Images from the original note were not included. Venipuncture collection performed by clean technique on the left anticubitus. Total of 1 attempts were made. Slight pressure and a bandage/dressing were applied to the site(s). The patient experienced no complications. The following specimens were processed according to instructions and sent to [facility] laboratories per lab order on 06/01/2024 : LT BLUE SST 1 RED LAV PPT DK GREEN (LiHep) DK GREEN (SodH) TO DK BLUE (K2) DK BLUE (S) ACD Blood Culture NIPT/NTD [facility] HospitalXygrxl5032-94-81 09:00:00 Images from the original note were not included. Venipuncture collection performed by clean technique on the left anticubitus. Total of 1 attempts were made. Slight pressure and a bandage/dressing were applied to the site(s). The patient experienced no complications. The following specimens were processed according to instructions and sent to [facility] laboratories per lab order on 05/30/2024 : LT BLUE SST 1 RED LAV PPT DK GREEN (LiHep) DK GREEN (SodH) TO DK BLUE (K2) DK BLUE (S) ACD Blood Culture NIPT/NTD [facility] HospitalOlnbrq2810-58-50 15:47:54 Images from the original note were not included. Verified and discussed [facility] results and recommendations with pt. She will repeat on Thursday. Understanding verbalized. Jamaica Christensen RNCleveland Clinic Euclid HospitalQilrxb9399-85-68 15:38:06 Pt called requesting results. Would like a call back please. Is nervous and concerned. Selma MontanoCleveland Clinic Euclid HospitalYtnfyw1579-85-24 15:33:57 Pt returned call for her lab results. Please assist. Thank you Parish NguyenLonnie [place] 752374-08-16 09:45:00 Images from the original note were not included. Venipuncture collection performed by clean technique on the left anticubitus. Total of 1 attempts were made. Slight pressure and a bandage/dressing were applied to the site(s). The patient experienced no complications. The following specimens were processed according to instructions and sent to [facility] laboratories per lab order on 05/27/2024: LT BLUE SST 2 RED LAV 2 PPT DK GREEN (LiHep) DK GREEN (SodH) TO DK BLUE (K2) DK BLUE (S) ACD Blood Culture NIPT/NTD [facility] HospitalQhnbkk4677-29-04 14:39:[address] RN 05/17/2024 2:[address] [facility] HospitalWinttd8336-36-58 14:29:47 lmp not niall if it was 05/06 or implantation bleeding the pt says. this lasted 3 days, 02/24 the previous month for a normal period, no period in march Nakita BrownC[facility] Clinic E[facility] Hospital"
[2025-05-28] MEDS ORDERED: LORAZEPAM 1 MG TABLET ONE (12:39)
[2025-05-28] MEDS ORDERED: ONDANSETRON 4 MG (ODT) TAB ONE (12:39)
--- NOTE | 2025-05-28 13:12 | ER ---
Nurse's Notes [facility] Name: Roderick Motta Age: 25 yrs Sex: Female : 2000 Arrival Date: 05/28/2025 Time: 11:58 Bed 12 Private MD: Diagnosis: Incomplete Presentation: 05/28 12:10 Chief complaint: Patient states: Pt reports she is approximately 4 weeks . Was ss seen in the ER 2-3 days ago and told to come back for repeat lab work. Coronavirus screen: Client denies travel out of the [place] in the last 14 days. Ebola Screen: Patient denies exposure to infectious person. Patient denies travel to an Ebola-affected area in the 21 days before illness onset. Initial Sepsis Screen: Does the patient meet any 2 criteria? No. Patient's initial sepsis screen is negative. Does the patient have a suspected source of infection? No. Patient's initial sepsis screen is negative. Risk Assessment: Do you want to hurt yourself or someone else? Patient reports no desire to harm self or others. Onset of symptoms is unknown. 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 - Social history:: Smoking status: Patient denies any tobacco usage or history of. Screenin:17 Abuse screen: Denies threats or abuse. Denies injuries from another. Nutritional ss screening: No deficits noted. 13:17 [facility] ED Fall Risk Assessment (Adult) History of falling in the last 3 months, iw including since admission No falls in past 3 months (0 pts) Confusion or Disorientation No (0 pts) Intoxicated or Sedated No (0 pts) Impaired Gait No (0 pts) Mobility Assist Device Used No (0 pt) Altered Elimination No (0 pt) Score/Fall Risk Level 0 - 2 = Low Risk Oriented to surroundings, Maintained a safe environment. Tuberculosis screening: No symptoms or risk factors identified. Assessment: 13:17 General: Appears in no apparent distress. comfortable, Behavior is calm, cooperative. ss Neuro: Level of Consciousness is awake, alert, obeys commands, Oriented to person, place, time, situation. Respiratory: Airway is patent Respiratory effort is even, unlabored, Respiratory pattern is regular, symmetrical. Vital Signs: 12:10 BP 134 / 99; Pulse 86; Resp 16; Temp 98.3(TE); Pulse Ox 98% on R/A; Height 5 ft. 3 in. ss ; Pain 6/10; 12:10 Pain Scale: Adult ss ED Course: 12:00 Patient arrived in ED. al6 12:01 Lyudmila Carpenter PA-C is [facility]. sb4 12:01 Alton Perez MD is Attending Physician. sb4 12:14 Triage completed. ss 12:14 Arm band placed on right wrist. ss 12:45 Virginia Parker, RN is Primary Nurse. iw 13:17 Patient has correct armband on for positive identification. ss 13:17 No provider procedures requiring assistance completed. Patient did not have IV access ss during this emergency room visit. Administered Medications: 12:45 Drug: LORazepam PO 1 mg PO once Route: PO; iw 13:18 Follow up: Response: No adverse reaction; Anxiety decreased ss 12:45 Drug: Ondansetron PO 4 mg PO once Route: PO; iw 13:18 Follow up: Response: No adverse reaction; Nausea is decreased ss Outcome: 13:11 Discharge ordered by MD. sb4 13:17 Discharged to home ambulatory, ss 13:17 Condition: good 13:17 Discharge instructions given to patient, Instructed on discharge instructions, follow up and referral plans. no driving heavy equipment, Demonstrated understanding of instructions, follow-up care, medications, Prescriptions given X 2, 13:19 Patient left the ED. ss Signatures: Virginia Parker, RN RN iw Sigrid Ramirez RN RN Lyudmila Carpenter PA-C PA-C sb4 Shahana Dickinson al6
--- NOTE | 2025-05-28 13:12 | EDPHYS ---
Physician Documentation [facility] Name: Roderick Motta Age: 25 yrs Sex: Female : 2000 Arrival Date: 05/28/2025 Time: 11:58 Bed 12 Private MD: ED Physician Alton Perez HPI: 05/28 12:28 This 25 yrs old Female presents to ER via Ambulatory with complaints of sb4 Vaginal Bleeding, + Preg <12wks, Dizziness. 12:28 The patient presents to the emergency department with abdominal pain, nausea and sb4 vomiting, vaginal bleeding. The estimated gestational age is 4 weeks. Patient reports vaginal bleeding, abdominal cramping, nausea for over a week now. Was seen here 2 days ago, told she was likely miscarrying but to come 48 hours afterwards to have a repeat ultrasound and blood work done. She states that she has had continued pain, bleeding, nausea, vomiting since. She has been taking [id number] medications without significant relief. 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 - Social history:: Smoking status: Patient denies any tobacco usage or history of. ROS: 12:28 Constitutional: Negative for fever, chills, and weight loss, sb4 12:28 Abdomen/GI: Positive for nausea and vomiting, 12:28 : Positive for pelvic pain, vaginal bleeding, 12:28 All other systems are negative, Exam: 12:28 Head/Face: Normocephalic, atraumatic. Eyes: Extra-ocular motions intact. Periorbital sb4 areas with no swelling, redness, or edema. ENT: Mucous membranes moist. Cardiovascular: Regular rate and rhythm with a normal S1 and S2. Respiratory: No increased work of breathing, no retractions or nasal flaring. Abdomen/GI: Soft, non-tender, no distension. Skin: Warm, dry with normal turgor. Normal color with no rashes, no lesions, and no evidence of cellulitis. 12:28 Constitutional: The patient appears alert, awake, anxious, tearful Vital Signs: 12:10 BP 134 / 99; Pulse 86; Resp 16; Temp 98.3(TE); Pulse Ox 98% on R/A; Height 5 ft. 3 in. ss ; Pain 6/10; 12:10 Pain Scale: Adult ss MDM: 12:02 Medical Screening Exam initiated sb4 12:30 Differential diagnosis: threatened Ab, inevitable Ab, complete Ab. sb4 12:33 Refusal of service: The patient/guardian displays adequate decision making capability sb4 and despite a detailed discussion of alternatives, benefits, risks, and consequences refuses: Ultrasound. ED course: Patient is extremely anxious this time. I recommended ultrasound and lab work but she refuses at this time. She is okay with a straight stick and p.o. medications. She does not even want to get into the bed. 13:10 Data reviewed: vital signs, nurses notes, lab test result(s), and as a result, I will sb4 discharge patient. Counseling: I had a detailed discussion with the patient and/or guardian regarding the historical points, exam findings, and any diagnostic results supporting the discharge/admit diagnosis, lab results, the need for outpatient follow up, for definitive care, to return to the emergency department if symptoms worsen or persist or if there are any questions or concerns that arise at home. 05/28 12:14 Order name: HCG-Quantitative; Complete Time: 13:07 sb4 Administered Medications: 12:45 Drug: LORazepam PO 1 mg PO once Route: PO; iw 13:18 Follow up: Response: No adverse reaction; Anxiety decreased ss 12:45 Drug: Ondansetron PO 4 mg PO once Route: PO; iw 13:18 Follow up: Response: No adverse reaction; Nausea is decreased ss Disposition: 16:59 Co-signature as Attending Physician, Alton Perez MD I reviewed the patient's care rn provided by the Advanced Practice Provider and agree with the diagnosis and treatment plan. Disposition Summary: 05/28/25 13:11 Discharge Ordered Notes: Location: Home sb4 Problem: an ongoing problem sb4 Symptoms: are unchanged sb4 Condition: Stable sb4 Diagnosis - Incomplete sb4 Followup: sb4 - With: Emergency Department - When: As needed - Reason: Worsening of condition Discharge Instructions: - Discharge Summary Sheet sb4 - Incomplete Miscarriage sb4 Forms: - Work release form sb4 - Patient Portal Instructions sb4 - Leadership Thank You Letter sb4 Prescriptions: - ondansetron 4 mg Oral Tablet,disintegrating - take 1 tablet ORAL route every 6 hours as needed for nausea and vomiting; 10 sb4 tablet; Refills: 0, Product Selection Permitted - Ibuprofen 800 mg Oral Tablet - take 1 tablet ORAL route every 8 hours As needed take with food; 30 tablet; sb4 Refills: 0, Product Selection Permitted Signatures: Dispatcher [employer] Virginia Marsh RN RN iw Nieto, Roman, MD MD rn Blanchard, Shelby, RN RN ss Brown, Sophia, PA-Yuki PA-Yuki sb4
[2025-05-28 17:26] VITALS: BP 134/99; TEMP 98.3; O2SAT 98
== END 2025-05-28 13:19 | disposition home or self-care (01) ==
LOC: ER 11:58
DX: O03.4 Incomplete spontaneous abortion without complication (principal)
CPT/HCPCS: 36415; 84702; 99283; Q0162